=== PATIENT | female | born 1930 | race Caucasian/White ===

== ENCOUNTER 2016-09-21 15:50 | Observation (INO) | payer OTHER, MEDICARE ==
--- NOTE | 2016-09-21 16:14 | PDOC ---
History of Present Illness - General Chief Complaint: Nausea/Vomiting Stated Complaint: VOMITING Time Seen by Provider: 09/21/16 16:12 Past History - Past Medical History Allergies/Adverse Reactions: Allergies Allergy/AdvReac Type Severity Reaction Status Date / Time No Known Allergies Allergy Verified 09/21/16 15:57 Home Medications: Ambulatory Orders Aspirin [ASA -] 81 mg PO DAILY 11/27/12 Doxazosin Mesylate [Cardura Xl] 4 mg PO DAILY 11/27/12 Metoprolol Succinate 100 mg PO BID 11/27/12 Vitamin E 400 unit PO DAILY 11/27/12 Amlodipine/Valsartan [Exforge 10-160 mg Tablet] 1 each PO DAILY 05/31/13 Calcium 1,000 mg PO DAILY 05/31/13 Cholecalciferol (Vitamin D3) [Vitamin D-400] 400 unit PO DAILY 05/31/13 Cyanocobalamin [Vitamin B12 -] 1,000 mcg PO DAILY 05/31/13 Hydroxychloroquine Sulfate 200 mg PO DAILY 05/31/13 Levothyroxine [Synthroid -] 25 mcg PO DAILY 05/31/13 Multivitamin [Daily Multiple Vitamin] 1 each PO DAILY 05/31/13 Ibuprofen [Motrin -] 400 mg PO QID PRN #28 tablet 10/12/13 Cardiac Disorders: Yes (CHF) Diabetes: Yes HTN: Yes Hypercholesterolemia: Yes Thyroid Disease: Yes - Surgical History Abdominal Surgery: Yes (UMBILICAL HERNIA REPAIR) Appendectomy: Yes - Psycho/Social/Smoking Cessation Hx Anxiety: No Suicidal Ideation: No Smoking History: Never smoked Hx Alcohol Use: No Drug/Substance Use Hx: No Substance Use Type: None *Physical Exam - Vital Signs Last Vital Signs Temp Pulse Resp BP Pulse Ox 97.5 F L 71 18 159/76 99 09/21/16 15:54 09/21/16 15:54 09/21/16 15:54 09/21/16 15:54 09/21/16 15:54 ED Treatment Course - LABORATORY CBC & Chemistry Diagram: 09/21/16 16:46 09/21/16 16:46 Medical Decision Making - Medical Decision Making ddx: ACS, gastroenteritis, colitis, diberticulosis, hypogly 09/21/16 17:00 Patient feeling better following zofran 1 l bolus ns 09/21/16 18:02 ua wnl cbc wnl NA, BUN: hemoconcentrated should correct with fluids. 09/21/16 18:03 Trop(-), Positive CKMB Admit to tele 09/21/16 19:12 Dr. Hemphill spoke with PCP, Dr. Rodriguez and he instructed to admit to hospitalist 09/21/16 19:59 Admitted to tele-obs *DC/Admit/Observation/Transfer Diagnosis at time of Disposition: Elevation of cardiac enzymes, Epigastric pain - Discharge Dispostion Condition at time of disposition: Guarded Admit: Yes - Attestations Physician Attestion: 09/21/16 20:00 I, Dr. William Zamora, attest that this document has been prepared under my direction and personally reviewed by me in its entirety. I further attest, that it accurately reflects all work, treatment, procedures and medical decision -making performed by me.
[2016-09-21] MEDS ORDERED: ONDANSETRON 4 MG/2 ML VIAL ONE (16:21)
[2016-09-21 16:56] LABS: BASOPHIL 1.1 % (0-2.0); EOSINOPHIL 1.5 % (0-4.5); MCH 31.6 pg (25.7-33.7); MCHC 33.7 g/dl (32.0-36.0); MEAN CELL VOLUME 93.9 fl (80-96); MEAN PLT VOLUME 7.7 fl (7.5-11.1); NEUTROPHILS 68.7 % (42.8-82.8); PLATELET COUNT 305 K/MM3 (134-434); RDW 14.4 % (11.6-15.6); WHITE BLOOD COUNT 5.1 K/mm3 (4.0-10.0)
[2016-09-21] MEDS ORDERED: ONDANSETRON 4 MG/2 ML VIAL IVPUSH ONE (17:03)
[2016-09-21] MEDS ORDERED: SODIUM CHLORIDE 1,000 ML IV STA (17:05)
[2016-09-21 17:25] LABS: ALBUMIN 3.8 g/dl (3.4-5.0); ANION GAP 8 (8-16); BILIRUBIN,TOTAL 0.3 mg/dL (0.2-1.0); CALCIUM 8.7 mg/dL (8.5-10.1); CO2 24 mmol/L (21-32); CREATININE 0.8 mg/dL (0.55-1.02); GLUCOSE,RANDOM 117 mg/dL (74-106); SGOT/AST 31 U/L (15-37); SGPT/ALT 45 U/L (12-78); TOT PROT 6.9 g/dl (6.4-8.2)
[2016-09-21 17:26] LABS: ALK PHOS 123 U/L (45-117)
--- NOTE | 2016-09-21 17:45 | PDOC ---
Attending Attestation - Resident Resident Name: William Zamora - ED Attending Attestation I have performed the following: I have examined & evaluated the patient, The case was reviewed & discussed with the resident, I agree w/resident's findings & plan, Exceptions are as noted - HPI HPI: 09/21/16 17:44 Agree with the resident's HPI as documented in the electronic medical record. - Physicial Exam PE: 09/21/16 17:44 Agree with the resident's physical examination as documented in the electronic medical record. - Medical Decision Making 09/21/16 17:44 85-year-old female with history of hypertension, diabetes, CHF who presents the emergency department with 2 episodes of nausea, vomiting and diarrhea earlier this morning. Differential diagnosis includes but is not limited to: Gastroenteritis, colitis, diverticulitis, gallbladder disease, pancreatitis, atypical presentation of ACS, UTI, dehydration, electrolyte abnormality, toxic/ metabolic derangement. Plan: 1. Labs 2. EKG 3. Urine analysis 4. IV fluids for hydration 5. Antiemetics 6. Observe and reevaluate 09/21/16 18:55 Addendum: EKG shows NSR at 70 bpm with a RBBB--no prior EKG for comparison. The troponin 0.05 and the Ck and MB fraction are both elevated. Will recommend admission to tele observation for serial cardiac markers and cardiac stress test.
[2016-09-21 17:54] LABS: URINE APPEARANCE CLEAR; URINE BILIRUBIN NEGATIVE (NEGATIVE); URINE BLOOD NEGATIVE (NEGATIVE); URINE COLOR LTYELLOW; URINE GLUCOSE (UA) NEGATIVE (NEGATIVE); URINE KETONE NEGATIVE (NEGATIVE); URINE LEUK ESTERASE NEGATIVE (NEGATIVE); URINE NITRITE NEGATIVE (NEGATIVE); URINE UROBILINOGEN NEGATIVE mg/dL (0.2-1.0)
[2016-09-21 17:56] LABS: URINE PROTEIN 1+ (NEGATIVE)
[2016-09-21 17:57] LABS: URINE BACTERIA RARE /hpf (NONE SEEN); URINE MUCUS RARE; URINE RBC 1 /hpf (0-3); URINE WBC 5 /hpf (3-5)
[2016-09-21 18:11] LABS: TROPONIN I 0.05 ng/ml (0.00-0.05)
--- NOTE | 2016-09-21 20:31 | HP ---
Admitting History and Physical - Admission Chief Complaint: nausea, diarrhea, epigastric discomfort History of Present Illness: 85 y old white f w hx of htn, dm, celiac disease, hypothyroidism, chf, hlp, RA presents to the ER for epigastric discomfort, nausea, and soft stools x 2. She reports onset of symptoms earlier today shortly after taking Aricept pill. She reports some associated perspiration, and tingling in the lips. She states the pain in her epigastric area lasted 1 hour. She states that the pain is 6/10, sharp, non- radiating. She reports the pain dissipated on its own. She reports eating cereal and grits this am and having fish and vegetables last night for dinner. She denies body aches, fevers, bloody stools, chest pain, sob, heart palps, marion, vision changes, dizziness, leg swelling, dysuria syncope, orthopnea. She denies sick contacts. PMH/PSH- hernia repair, hysterectomy, cyst removal, hammer toe surgery, htn, dm , celiac disease, hypothyroidism, chf, hlp, Ra. Social- . Denies alcohol, tobacco Famhx- Unk PCP- Dr Renny Aponte neg except for HPI Physical Gen- in nad, alert Hent- at/nc, ellie, neck supple, trachea mid-line, no lymphadenopathy, ellie, no pharyngeal erythema/exudates Resp- no cough, no rales, lungs ctab, no ronchi, no cyanosis Cards- S1S2 Bennett, no JVD, ext pulses palpable, no leg edema, RRR, systolic 2/6 murmur over precordium Skin- no rash, skin dry, intact Psych- no agitation, cooperative Neuro- cn 2-12 grossly intact, speech clear, no facial droop Musk- normal arom bue/ble Gi- soft non- tender, no guarding, no rebound, no rigidity, BS nomroactive x 4 Prob list epigastric discomfort nausea htn dm hlp elevated cardiac enzymes imaging: cxr reviewed ekg reviewed a/p-85 y old white f w hx of htn, dm, celiac disease, hypothyroidism, chf, hlp, RA presents to the ER for epigastric discomfort, nausea, and soft stools placed in obs for evaluation of their emergent condition.. 1. Epigastric discomfort, nausea ? gastroenteritis, atypical ACS, gastritis, drug reaction Reports feeling nausea and epigastric discomfort after taking Aricept Given Zofran in Er Lipase nl CK elevated 1st trop neg No WHIT/STD changes Abdominal US pending Cycle trops Cardiac tele Hold Aricpet Prn Zofran Prn mylanta 2. HTN Cont home meds 3. HLP No home meds Low fat diet 4. RA Cont home meds 5. DM No home meds Monitor F/S FU A1c NCS 6. Hypothyroidism FU TSH Cont home meds DVT prophy scd, oob FEN Low NA, Low fat, diabetic diet Dispo- obs for ACS r/o History Source: Patient, Family Member Limitations to Obtaining History: No Limitations - Smoking History Smoking history: Never smoked - Alcohol/Substance Use Hx Alcohol Use: No Home Medications - Allergies Allergies/Adverse Reactions: Allergies Allergy/AdvReac Type Severity Reaction Status Date / Time No Known Allergies Allergy Verified 09/21/16 15:57 - Home Medications Home Medications: Ambulatory Orders Aspirin [ASA -] 81 mg PO DAILY 11/27/12 Doxazosin Mesylate [Cardura Xl] 4 mg PO DAILY 11/27/12 Metoprolol Succinate 100 mg PO BID 11/27/12 Vitamin E 400 unit PO DAILY 11/27/12 Amlodipine/Valsartan [Exforge 10-160 mg Tablet] 1 each PO DAILY 05/31/13 Calcium 1,000 mg PO DAILY 05/31/13 Cholecalciferol (Vitamin D3) [Vitamin D-400] 400 unit PO DAILY 05/31/13 Cyanocobalamin [Vitamin B12 -] 1,000 mcg PO DAILY 05/31/13 Hydroxychloroquine Sulfate 200 mg PO DAILY 05/31/13 Levothyroxine [Synthroid -] 25 mcg PO DAILY 05/31/13 Multivitamin [Daily Multiple Vitamin] 1 each PO DAILY 05/31/13 Ibuprofen [Motrin -] 400 mg PO QID PRN #28 tablet 10/12/13 Physical Examination Vital Signs: Vital Signs Temperature 97.7 F 09/21/16 19:39 Pulse Rate 77 09/21/16 19:39 Respiratory Rate 18 09/21/16 19:39 Blood Pressure 166/59 09/21/16 19:39 O2 Sat by Pulse Oximetry (%) 99 09/21/16 19:39 Labs: CBC, BMP 09/21/16 16:46 07/15/17 16:46 Visit type - Emergency Visit Emergency Visit: Yes ED Registration Date: 09/21/16 Care time: The patient presented to the Emergency Department on the above date and was hospitalized for further evaluation of their emergent condition. - New Patient This patient is new to me today: Yes Date on this admission: 09/22/16 - Critical Care Critical Care patient: No
[2016-09-21] MEDS ORDERED: ONDANSETRON 4 MG/2 ML VIAL IVPB PRN (20:40)
[2016-09-21] MEDS ORDERED: ACETAMINOPHEN 325 MG TABLET (FP) PO PRN (20:40)
[2016-09-21] MEDS ORDERED: MAG HYDROX/AL HYDROX/SIMETH 30 ML UNIT-DOSE CUP PO PRN (20:41)
[2016-09-22 01:46] VITALS: BMI 27.2
[2016-09-22] MEDS ORDERED: PNEUMOC 13-VAL CONJ-DIP CRM/PF 0.5 ML DISP.SYRIN IM ONE (01:46)
[2016-09-22 06:17] LABS: BASOPHIL 0.8 % (0-2.0); EOSINOPHIL 1.1 % (0-4.5); MCH 31.9 pg (25.7-33.7); MEAN CELL VOLUME 93.8 fl (80-96); MEAN PLT VOLUME 7.5 fl (7.5-11.1); NEUTROPHILS 63.7 % (42.8-82.8); PLATELET COUNT 308 K/MM3 (134-434); RDW 14.6 % (11.6-15.6); WHITE BLOOD COUNT 5.9 K/mm3 (4.0-10.0)
[2016-09-22] MEDS: LEVOTHYROXINE NA 25 MCG TABLET (FP) PO SCH (06:30)
[2016-09-22 06:43] LABS: ALBUMIN 3.2 g/dl (3.4-5.0); ANION GAP 9 (8-16); CALCIUM 8.4 mg/dL (8.5-10.1); CO2 25 mmol/L (21-32); GLUCOSE,RANDOM 94 mg/dL (74-106); SGOT/AST 29 U/L (15-37); SGPT/ALT 38 U/L (12-78)
[2016-09-22 06:46] LABS: ALK PHOS 101 U/L (45-117); BILIRUBIN,TOTAL 0.5 mg/dL (0.2-1.0); CREATININE 0.7 mg/dL (0.55-1.02); TOT PROT 5.8 g/dl (6.4-8.2)
[2016-09-22 08:32] LABS: TROPONIN I 0.07 ng/ml (0.00-0.05)
[2016-09-22] MEDS ORDERED: PT OWN MED DRAWER 7, Y5N ONE ×2 (09:10→12:53)
[2016-09-22] MEDS: ASPIRIN 81 MG CHEWABLE TABLETS PO SCH (09:24)
[2016-09-22] MEDS: VALSARTAN 160 MG TABLET (UD) PO SCH (09:24)
[2016-09-22] MEDS: amLODIPine BESYLATE 10 MG TABLET (FP) PO SCH (09:24)
[2016-09-22] MEDS: METOPROLOL SUCCINATE 50 MG TAB.SR.24H (FP) PO SCH (09:24)
[2016-09-22] MEDS: MULTIVITAMINS (DAILY MVI) TABLET (FP) PO SCH (09:24)
--- NOTE | 2016-09-22 11:49 | PN ---
Progress Note (short form) - Note Progress Note: Chief Complaint: Events noted, notes reviewed, abdominal discomfort and diarrhea , denies any chest pain or dyspnea History of Present Illness: Seen and examined in the ICU. Events noted, notes reviewed, abdominal discomfort and diarrhea, denies any chest pain or dyspnea Medications: Current Medications Acetaminophen (Tylenol -) 650 mg PO Q4H PRN PRN Reason: FEVER OR PAIN Al Hydroxide/Mg Hydroxide (Mylanta Oral Suspension -) 30 ml PO Q6H PRN PRN Reason: DYSPEPSIA Amlodipine Besylate (Norvasc -) 10 mg PO DAILY [facility] Last Admin: 09/22/16 09:24 Dose: 10 mg Aspirin (Asa -) 81 mg PO DAILY [facility] Last Admin: 09/22/16 09:24 Dose: 81 mg Calcium Carbonate (Os-Satish 500mg -) 1,000 mg PO BID [facility] Cholecalciferol (Vitamin D3 -) 400 unit PO DAILY [facility] Cyanocobalamin (Vitamin B12 -) 1,000 mcg PO DAILY [facility] Doxazosin Mesylate (Cardura -) 4 mg PO DAILY [facility] Hydroxychloroquine Sulfate (Plaquenil -) 200 mg PO DAILY [facility] Levothyroxine Sodium (Synthroid -) 25 mcg PO DAILY@0700 [facility] Last Admin: 09/22/16 06:30 Dose: 25 mcg Metoprolol Succinate (Toprol Xl -) 50 mg PO DAILY [facility] Last Admin: 09/22/16 09:24 Dose: 50 mg Multivitamins/Minerals/Vitamin C (Tab-A-Vit -) 1 tab PO DAILY [facility] Last Admin: 09/22/16 09:24 Dose: 1 tab Ondansetron HCl (Zofran Injection) 4 mg IVPB Q4H PRN PRN Reason: NAUSEA AND/OR VOMITING Valsartan (Diovan -) 160 mg PO DAILY [facility] Last Admin: 09/22/16 09:24 Dose: 160 mg Vitamin E (Vitamin E -) 400 unit PO DAILY [facility] Review of Systems Cardiovascular: As noted above Respiratory: denies: Cough or Sputum Production Gastrointestinal: As noted above Musculoskeletal: No Symptoms Reported Endocrine: Hypothyroidism Vital Signs: Last Vital Signs Temp Pulse Resp BP Pulse Ox 98.4 F 78 18 161/68 96 09/22/16 06:03 09/22/16 08:00 09/22/16 08:00 09/22/16 08:00 09/22/16 09:00 Constitutional: No Distress, Calm, Thin Neck: Supple Negative JVD No bruit Respiratory: Clear to A&P Bilaterally Cardiovascular: S1 S2 Regular Rate and Rhythm Grade 1-2/6 SM Gastrointestinal: Soft Benign Normal Bowel Sounds Ext: No Edema Labs: CBC, BMP 09/22/16 05:20 09/22/16 05:20 Troponin, BNP 09/21/16 09/21/16 09/21/16 16:46 17:45 22:39 Troponin I 0.05 Cancelled 0.05 09/22/16 09/22/16 09/22/16 05:20 05:20 05:20 Troponin I 0.07 H Cancelled Cancelled Assessment/Plan ASSESSMENT: 1. CAD with evidence of demand ischemic injury, no acute EKG changes 2. 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 Abdominal discomfort and diarrhea, etiology to be determined 4. HTN 5. NIDDM 6. Hypercholesterolemia 7. Hypothyroidism 8. History of rheumatoid arthritis 9. History of Celiac disease PLAN: 1. Continue Norvasc 2. Continue Cardura 3. Continue Toprol XL 4. Continue Diovan 5. Continue ASA 6. Add statins, Lipitor 7. Echocardiography to evaluate LV function, if no wall motion abnormality noted and Troponin I trending down can be D/C home for outpatient pharmacologic MPI study Vandana Omer M.D.
[2016-09-22] MEDS: HYDROXYCHLOROQUINE SO4 200 MG TABLET (FP) PO SCH (12:55)
[2016-09-22] MEDS: VITAMIN E 400 INTERNATIONAL-UNITS CAPSULE (FP) PO SCH (12:55)
[2016-09-22] MEDS: CHOLECALCIFEROL (VITAMIN D3) 400 UNIT TABLET (FP) PO SCH (12:55)
[2016-09-22] MEDS: CYANOCOBALAMIN 1,000 MCG TABLET (FP) PO SCH (12:55)
--- NOTE | 2016-09-22 13:35 | EKG ---
Test Reason : Blood Pressure : / mmHG Vent. Rate : 070 BPM Atrial Rate : 070 BPM P-R Int : 154 ms QRS Dur : 146 ms QT Int : 434 ms P-R-T Axes : 043 068 028 degrees QTc Int : 468 ms NORMAL SINUS RHYTHM RIGHT BUNDLE BRANCH BLOCK POSSIBLE INFERIOR INFARCT , AGE UNDETERMINED ABNORMAL ECG WHEN COMPARED WITH ECG OF 12-OCT-2013 15:19, NO SIGNIFICANT CHANGE WAS FOUND Confirmed by CHRISTIANE CALL, JIMMY ([id number]) on 09/22/2016 1:35:44 PM Referred By: Confirmed By:JIMMY GRANDE MD
[2016-09-22] MEDS: DOXAZOSIN MESYLATE 4 MG TABLET PO SCH (15:28)
[2016-09-22] MEDS: CALCIUM (OYSTER SHELL) 500 MG TABLET (FP) PO SCH ×2 (15:29→21:45)
--- NOTE | 2016-09-22 17:49 | PN ---
Physical Exam: SUBJECTIVE: Patient seen and examined at the bedside. She denies any discomfort and/or chest pain. States Aricept is a new medication and she became symptomatic (having abdominal pain, nausea and lip tingling) after taking Aricept. She states her symptoms have now resolved. OBJECTIVE: Troponins peaked at 0.07 Vital Signs Period Temp Pulse Resp BP Sys/Elaine Pulse Ox Last 24 Hr 97.7 F-98.8 F 72-91 16-24 135-177/51-92 96-98 GENERAL: The patient is awake, alert, and fully oriented, in no acute distress. HEAD: Normal with no signs of trauma, no edema, no lip swelling, tolerating room air EYES: PERRL, extraocular movements intact, sclera anicteric, conjunctiva clear. No ptosis. ENT: Ears normal, nares patent, oropharynx clear without exudates, moist mucous membranes. NECK: Trachea midline, full range of motion, supple. LUNGS: Breath sounds equal, clear to auscultation bilaterally, no wheezes, no crackles, no accessory muscle use. HEART: Regular rate and rhythm ABDOMEN: soft, non distended, + bowel sounds EXTREMITIES: no edema. NEUROLOGICAL: Normal speech, gait not observed. PSYCH: Normal mood, normal affect. SKIN: Warm, dry, normal turgor, no rashes or lesions noted Laboratory Results - last 24 hr 09/21/16 09/21/16 09/21/16 22:39 22:39 22:39 WBC RBC Hgb Hct MCV MCH MCHC RDW Plt Count MPV Neutrophils % Lymphocytes % Monocytes % Eosinophils % Basophils % Sodium Potassium Chloride Carbon Dioxide Anion Gap BUN Creatinine Creat Clearance w eGFR POC Glucometer Random Glucose Hemoglobin A1c % 6.6 H Calcium Total Bilirubin AST ALT Alkaline Phosphatase Creatine Kinase CK-MB (CK-2) Troponin I 0.05 Total Protein Albumin TSH 1.08 D 09/22/16 09/22/16 09/22/16 04:56 05:20 05:20 WBC 5.9 RBC 3.42 L Hgb 10.9 Hct 32.1 L MCV 93.8 MCH 31.9 MCHC 34.0 RDW 14.6 Plt Count 308 MPV 7.5 Neutrophils % 63.7 Lymphocytes % 21.8 Monocytes % 12.6 H Eosinophils % 1.1 Basophils % 0.8 Sodium 140 Potassium 3.9 Chloride 106 Carbon Dioxide 25 Anion Gap 9 BUN 21 H D Creatinine 0.7 Creat Clearance w eGFR > 60 POC Glucometer [id number] Random Glucose 94 Hemoglobin A1c % Calcium 8.4 L Total Bilirubin 0.5 D AST 29 ALT 38 Alkaline Phosphatase 101 Creatine Kinase 256 H D CK-MB (CK-2) 5.705 H Troponin I 0.07 H Total Protein 5.8 L Albumin 3.2 L TSH 09/22/16 09/22/16 09/22/16 05:20 05:20 12:40 WBC RBC Hgb Hct MCV MCH MCHC RDW Plt Count MPV Neutrophils % Lymphocytes % Monocytes % Eosinophils % Basophils % Sodium Potassium Chloride Carbon Dioxide Anion Gap BUN Creatinine Creat Clearance w eGFR POC Glucometer Random Glucose Hemoglobin A1c % Calcium Total Bilirubin AST ALT Alkaline Phosphatase Creatine Kinase Cancelled CK-MB (CK-2) Troponin I Cancelled Cancelled 0.07 H Total Protein Albumin TSH Active Medications Generic Name Dose Route Start Last Admin Trade Name Freq PRN Reason Stop Dose Admin Acetaminophen 650 mg 09/21/16 20:40 Tylenol - PO Q4H PRN FEVER OR PAIN Al Hydroxide/Mg Hydroxide 30 ml 09/21/16 20:41 Mylanta Oral Suspension - PO Q6H PRN DYSPEPSIA Amlodipine Besylate 10 mg 09/22/16 10:00 09/22/16 09:24 Norvasc - PO 10 mg DAILY [facility] Administration Aspirin 81 mg 09/22/16 10:00 09/22/16 09:24 Asa - PO 81 mg DAILY [facility] Administration Atorvastatin Calcium 10 mg 09/22/16 22:00 Lipitor - PO HS [facility] Calcium Carbonate 1,000 mg 09/22/16 10:00 09/22/16 15:29 Os-Satish 500mg - PO 1,000 mg BID [facility] Administration Cholecalciferol 400 unit 09/22/16 10:00 09/22/16 12:55 Vitamin D3 - PO 400 unit DAILY [facility] Administration Cyanocobalamin 1,000 mcg 09/22/16 10:00 09/22/16 12:55 Vitamin B12 - PO 1,000 mcg DAILY [facility] Administration Doxazosin Mesylate 4 mg 09/22/16 10:00 09/22/16 15:28 Cardura - PO 4 mg DAILY [facility] Administration Hydroxychloroquine Sulfate 200 mg 09/22/16 10:00 09/22/16 12:55 Plaquenil - PO 200 mg DAILY [facility] Administration Levothyroxine Sodium 25 mcg 09/22/16 07:00 09/22/16 06:30 Synthroid - PO 25 mcg DAILY@0700 [facility] Administration Metoprolol Succinate 50 mg 09/22/16 10:00 09/22/16 09:24 Toprol Xl - PO 50 mg DAILY [facility] Administration Multivitamins/Minerals/Vitamin C 1 tab 09/22/16 10:00 09/22/16 09:24 Tab-A-Vit - PO 1 tab DAILY [facility] Administration Ondansetron HCl 4 mg 09/21/16 20:40 Zofran Injection IVPB Q4H PRN NAUSEA AND/OR VOMITING Valsartan 160 mg 09/22/16 10:00 09/22/16 09:24 Diovan - PO 160 mg DAILY [facility] Administration Vitamin E 400 unit 09/22/16 10:00 09/22/16 12:55 Vitamin E - PO 400 unit DAILY [facility] Administration ASSESSMENT/PLAN: Patient is an 85 year old female with a significant past medical history of hypertension, diabetes mellitus, celiac disease, hypothyroidism and CHF. She presented to the ER on 09/21/2016 with symptoms of epigastric discomfort, nausea , and soft stools. She reports onset of symptoms started after taking her first dose of Aricept (states she has never taken this medication before). She reports some associated perspiration, and tingling in the lips with epigastric discomfort. She denies body aches, fevers, bloody stools, chest pain, sob, heart palps, vision changes, dizziness, leg swelling, dysuria or syncope. She denies sick contacts. Cardiology: Rule out ACS Assessment/Plan: Elderly patient with risk factors She denies chest pain or shortness of breath, denies further epigastric discomfort Troponins peaked at 0.07, will add trop in a.m. to document peak Monitor on tele EKG: NSR with RGG and possible inf. infarct Echo for a.m. Cardiology following Hypertension - chronic Assessment/Plan: Continue cardiac home meds Monitor BP GI: Abdominal pain/Epigastric pain Assessment/Plan: Now resolved, tolerating diet Endocrine: Diabetes Mellitus Assessment/Plan: Monitor BGMs Novolog ac/hs Disposition: If cardiac workup negative, can be d/c home as per fisher quahog. Continue to hold aricept. Full code Visit type - Emergency Visit Emergency Visit: Yes ED Registration Date: 09/21/16 Care time: The patient presented to the Emergency Department on the above date and was hospitalized for further evaluation of their emergent condition. - New Patient This patient is new to me today: Yes Date on this admission: 09/22/16 - Critical Care Critical Care patient: Yes Total Critical Care Time (in minutes): 45 Critical Care Statement: The care of this patient involved high complexity decision making to prevent further life threatening deterioration of the patient 's condition and/or to evalute & treat vital organ system(s) failure or risk of failure. - Discharge Referral Referred to [facility] No
[2016-09-22] MEDS ORDERED: ATORVASTATIN CA 10 MG TABLET (FP) PO SCH (22:00)
[2016-09-23 06:28] LABS: BASOPHIL 0.9 % (0-2.0); EOSINOPHIL 1.6 % (0-4.5); MCHC 34.2 g/dl (32.0-36.0); MEAN CELL VOLUME 93.6 fl (80-96); MEAN PLT VOLUME 7.4 fl (7.5-11.1); NEUTROPHILS 70.9 % (42.8-82.8); PLATELET COUNT 310 K/MM3 (134-434); RDW 14.7 % (11.6-15.6); WHITE BLOOD COUNT 5.9 K/mm3 (4.0-10.0)
[2016-09-23] MEDS: LEVOTHYROXINE NA 25 MCG TABLET (FP) PO SCH (06:39)
[2016-09-23 06:53] LABS: ALBUMIN 3.3 g/dl (3.4-5.0); ANION GAP 5 (8-16); BILIRUBIN,TOTAL 0.4 mg/dL (0.2-1.0); CALCIUM 8.7 mg/dL (8.5-10.1); CO2 29 mmol/L (21-32); CREATININE 0.8 mg/dL (0.55-1.02); GLUCOSE,RANDOM 174 mg/dL (74-106); SGOT/AST 26 U/L (15-37); SGPT/ALT 37 U/L (12-78); TOT PROT 6.1 g/dl (6.4-8.2)
[2016-09-23 06:55] LABS: ALK PHOS 105 U/L (45-117); TROPONIN I 0.06 ng/ml (0.00-0.05)
--- NOTE | 2016-09-23 08:54 | PN ---
Physical Exam: SUBJECTIVE: 85 year old female with pmh HTN, DM, hypothyroid, CHF, celiac dz presented to the hospital w/ epigastric discomfort, nausea, and soft stools. She was just started on Donezepil 5mg 09/20, took one tablet and afterwards began having these sx. She was found to have elevated trops with 0.07 peak. Today, the patient states her symptoms have completely resolved, with no lingering abdominal discomfort, nausea, diarrhea, chest pain. OBJECTIVE: Vital Signs Period Temp Pulse Resp BP Sys/Elaine Pulse Ox Last 24 Hr 98 F-98.8 F 72-88 13-24 118-176/52-85 96-96 GENERAL: The patient is awake, alert, and fully oriented, in no acute distress. HEAD: Normal with no signs of trauma. EYES: PERRL, extraocular movements intact, sclera anicteric, conjunctiva clear. No ptosis. ENT: Ears normal, nares patent, oropharynx clear without exudates, moist mucous membranes. NECK: Trachea midline, full range of motion, supple. LUNGS: Breath sounds equal, clear to auscultation bilaterally, no wheezes, no crackles, no accessory muscle use. HEART: Regular rate and rhythm, S1, S2 without murmur, rub or gallop. ABDOMEN: Soft, nontender, nondistended, normoactive bowel sounds, no guarding, no rebound, no hepatosplenomegaly, no masses. EXTREMITIES: 2+ pulses, warm, well-perfused, no edema. NEUROLOGICAL: Cranial nerves II through XII grossly intact. Normal speech, gait not observed. PSYCH: Normal mood, normal affect. SKIN: Warm, dry, normal turgor, no rashes or lesions noted CBC, BMP 09/23/16 05:15 09/23/16 05:15 Troponin, BNP 09/22/16 09/22/16 09/23/16 05:20 12:40 05:15 Troponin I 0.07 H 0.07 H 0.06 H Active Medications Generic Name Dose Route Start Last Admin Trade Name Freq PRN Reason Stop Dose Admin Acetaminophen 650 mg 09/21/16 20:40 Tylenol - PO Q4H PRN FEVER OR PAIN Al Hydroxide/Mg Hydroxide 30 ml 09/21/16 20:41 Mylanta Oral Suspension - PO Q6H PRN DYSPEPSIA Amlodipine Besylate 10 mg 09/22/16 10:00 09/22/16 09:24 Norvasc - PO 10 mg DAILY [facility] Administration Aspirin 81 mg 09/22/16 10:00 09/22/16 09:24 Asa - PO 81 mg DAILY [facility] Administration Atorvastatin Calcium 10 mg 09/22/16 22:00 09/22/16 21:18 Lipitor - PO 10 mg HS [facility] Administration Calcium Carbonate 1,000 mg 09/22/16 10:00 09/22/16 21:45 Os-Satish 500mg - PO 1,000 mg BID [facility] Administration Cholecalciferol 400 unit 09/22/16 10:00 09/22/16 12:55 Vitamin D3 - PO 400 unit DAILY [facility] Administration Cyanocobalamin 1,000 mcg 09/22/16 10:00 09/22/16 12:55 Vitamin B12 - PO 1,000 mcg DAILY [facility] Administration Doxazosin Mesylate 4 mg 09/22/16 10:00 09/22/16 15:28 Cardura - PO 4 mg DAILY [facility] Administration Hydroxychloroquine Sulfate 200 mg 09/22/16 10:00 09/22/16 12:55 Plaquenil - PO 200 mg DAILY [facility] Administration Levothyroxine Sodium 25 mcg 09/22/16 07:00 09/23/16 06:39 Synthroid - PO 25 mcg DAILY@0700 [facility] Administration Metoprolol Succinate 50 mg 09/22/16 10:00 09/22/16 09:24 Toprol Xl - PO 50 mg DAILY [facility] Administration Multivitamins/Minerals/Vitamin C 1 tab 09/22/16 10:00 09/22/16 09:24 Tab-A-Vit - PO 1 tab DAILY [facility] Administration Ondansetron HCl 4 mg 09/21/16 20:40 Zofran Injection IVPB Q4H PRN NAUSEA AND/OR VOMITING Valsartan 160 mg 09/22/16 10:00 09/22/16 09:24 Diovan - PO 160 mg DAILY [facility] Administration Vitamin E 400 unit 09/22/16 10:00 09/22/16 12:55 Vitamin E - PO 400 unit DAILY [facility] Administration ASSESSMENT/PLAN:
[2016-09-23] MEDS: ASPIRIN 81 MG CHEWABLE TABLETS PO SCH (09:18)
[2016-09-23] MEDS: VALSARTAN 160 MG TABLET (UD) PO SCH (09:18)
[2016-09-23] MEDS: METOPROLOL SUCCINATE 50 MG TAB.SR.24H (FP) PO SCH (09:18)
[2016-09-23] MEDS: amLODIPine BESYLATE 10 MG TABLET (FP) PO SCH (09:19)
[2016-09-23] MEDS: MULTIVITAMINS (DAILY MVI) TABLET (FP) PO SCH (09:20)
--- NOTE | 2016-09-23 09:25 | PN ---
Progress Note, Physician History of Present Illness: Epigastric discomfort, nausea and loose stools resolved, tolerated breakfast, denies chest pain or dyspnea. - Current Medication List Current Medications: Active Medications Acetaminophen (Tylenol -) 650 mg PO Q4H PRN PRN Reason: FEVER OR PAIN Al Hydroxide/Mg Hydroxide (Mylanta Oral Suspension -) 30 ml PO Q6H PRN PRN Reason: DYSPEPSIA Amlodipine Besylate (Norvasc -) 10 mg PO DAILY [facility] Last Admin: 09/23/16 09:19 Dose: 10 mg Aspirin (Asa -) 81 mg PO DAILY [facility] Last Admin: 09/23/16 09:18 Dose: 81 mg Atorvastatin Calcium (Lipitor -) 10 mg PO HS [facility] Last Admin: 09/22/16 21:18 Dose: 10 mg Calcium Carbonate (Os-Satish 500mg -) 1,000 mg PO BID [facility] Last Admin: 09/22/16 21:45 Dose: 1,000 mg Cholecalciferol (Vitamin D3 -) 400 unit PO DAILY [facility] Last Admin: 09/22/16 12:55 Dose: 400 unit Cyanocobalamin (Vitamin B12 -) 1,000 mcg PO DAILY [facility] Last Admin: 09/22/16 12:55 Dose: 1,000 mcg Doxazosin Mesylate (Cardura -) 4 mg PO DAILY [facility] Last Admin: 09/22/16 15:28 Dose: 4 mg Hydroxychloroquine Sulfate (Plaquenil -) 200 mg PO DAILY [facility] Last Admin: 09/22/16 12:55 Dose: 200 mg Levothyroxine Sodium (Synthroid -) 25 mcg PO DAILY@0700 [facility] Last Admin: 09/23/16 06:39 Dose: 25 mcg Metoprolol Succinate (Toprol Xl -) 50 mg PO DAILY [facility] Last Admin: 09/23/16 09:18 Dose: 50 mg Multivitamins/Minerals/Vitamin C (Tab-A-Vit -) 1 tab PO DAILY [facility] Last Admin: 09/23/16 09:20 Dose: 1 tab Ondansetron HCl (Zofran Injection) 4 mg IVPB Q4H PRN PRN Reason: NAUSEA AND/OR VOMITING Valsartan (Diovan -) 160 mg PO DAILY [facility] Last Admin: 09/23/16 09:18 Dose: 160 mg Vitamin E (Vitamin E -) 400 unit PO DAILY [facility] Last Admin: 09/22/16 12:55 Dose: 400 unit - Objective Vital Signs: Vital Signs Temperature 98 F 09/23/16 06:00 Pulse Rate 80 09/23/16 08:00 Respiratory Rate 18 09/23/16 09:00 Blood Pressure 155/75 09/23/16 08:00 O2 Sat by Pulse Oximetry (%) 96 09/23/16 09:00 Constitutional: Yes: No Distress, Calm, Thin Neck: Yes: Supple Cardiovascular: Yes: Regular Rate and Rhythm Respiratory: Yes: Regular, CTA Bilaterally Gastrointestinal: Yes: Normal Bowel Sounds, Soft Edema: No Labs: CBC, BMP 09/23/16 05:15 09/23/16 05:15 - ....Imaging EKG: Report Reviewed (Tele: SR with PAC) Problem List - Problems (1) Demand ischemia Code(s): I24.8 - OTHER FORMS OF ACUTE ISCHEMIC HEART DISEASE (2) Diastolic dysfunction without heart failure Code(s): I51.9 - HEART DISEASE, UNSPECIFIED (3) Hypertensive cardiomyopathy Code(s): I11.9 - HYPERTENSIVE HEART DISEASE WITHOUT HEART FAILURE I43 - CARDIOMYOPATHY IN DISEASES CLASSIFIED ELSEWHERE Qualifiers: Heart failure presence: without heart failure Qualified Code(s): I11.9 - Hypertensive heart disease without heart failure; I43 - Cardiomyopathy in diseases classified elsewhere (4) Hyperlipidemia associated with type 2 diabetes mellitus Code(s): E11.69 - TYPE 2 DIABETES MELLITUS WITH OTHER SPECIFIED COMPLICATION E78.5 - HYPERLIPIDEMIA, UNSPECIFIED (5) Type 2 diabetes mellitus Code(s): E11.9 - TYPE 2 DIABETES MELLITUS WITHOUT COMPLICATIONS Qualifiers: Diabetes mellitus complication status: without complication Diabetes mellitus senior care insulin use: without senior care use Qualified Code(s): E11.9 - Type 2 diabetes mellitus without complications (6) Hypothyroidism Code(s): E03.9 - HYPOTHYROIDISM, UNSPECIFIED Qualifiers: Hypothyroidism type: unspecified Qualified Code(s): E03.9 - Hypothyroidism, unspecified (7) Rheumatoid arthritis Code(s): M06.9 - RHEUMATOID ARTHRITIS, UNSPECIFIED Qualifiers: Rheumatoid arthritis location: unspecified site (8) Celiac disease/sprue Code(s): K90.0 - CELIAC DISEASE Assessment/Plan 1. CAD post demand ischemic injury, without acute EKG changes 2. 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 Abdominal discomfort and diarrhea, resolved 4. HTN 5. NIDDM 6. Hypercholesterolemia 7. Hypothyroidism 8. History of rheumatoid arthritis 9. History of Celiac disease PLAN: 1. Continue Norvasc 10 qd 2. Continue Cardura 4 qd 3. Continue Toprol XL 50 qd 4. Continue Diovan 160 qd 5. Continue ASA 81 qd 6. Continue Lipitor 10 qhs 7. F/u echocardiography to evaluate LV function, if no wall motion abnormality noted and Troponin I are trending down can be D/C home for outpatient pharmacologic MPI study
[2016-09-23] MEDS: DOXAZOSIN MESYLATE 4 MG TABLET PO SCH (11:27)
[2016-09-23] MEDS: VITAMIN E 400 INTERNATIONAL-UNITS CAPSULE (FP) PO SCH (11:27)
[2016-09-23] MEDS: CHOLECALCIFEROL (VITAMIN D3) 400 UNIT TABLET (FP) PO SCH (11:28)
[2016-09-23] MEDS: CALCIUM (OYSTER SHELL) 500 MG TABLET (FP) PO SCH (11:29)
[2016-09-23] MEDS: HYDROXYCHLOROQUINE SO4 200 MG TABLET (FP) PO SCH (11:30)
[2016-09-23] MEDS: CYANOCOBALAMIN 1,000 MCG TABLET (FP) PO SCH (11:31)
[2016-09-23 14:33] VITALS: BP 139/59; PULSE 74; TEMP 97.7
--- NOTE | 2016-09-23 15:51 | DS ---
Physical Examination Vital Signs: Vital Signs Temperature 97.7 F 09/23/16 14:00 Pulse Rate 74 09/23/16 14:00 Respiratory Rate 18 09/23/16 14:00 Blood Pressure 139/59 09/23/16 14:00 O2 Sat by Pulse Oximetry (%) 96 09/23/16 09:00 Labs: CBC, BMP 09/23/16 05:15 09/23/16 05:15 Discharge Summary Reason For Visit: CARDIAC ENZYMES ELEVATED Current Active Problems Cardiac enzymes elevated (Acute) Celiac disease/sprue (Acute) Demand ischemia (Acute) Diastolic dysfunction without heart failure (Acute) Epigastric pain (Acute) Hyperlipidemia associated with type 2 diabetes mellitus (Acute) Hypertensive cardiomyopathy (Acute) Hypothyroidism (Acute) Rheumatoid arthritis (Acute) Type 2 diabetes mellitus (Acute) Condition: Improved - Instructions Diet, Activity, Other Instructions: Please return to the ED with new, persistent, or worsening symptoms. Please follow-up with providers as indicated Referrals: Tono Hampton MD [Primary Care Provider] - 1 Week Karlos Owens MD [Staff Physician] - (Please follow-up with cardiology within 2 -3 days) Disposition: HOME - Home Medications Comprehensive Discharge Medication List: Ambulatory Orders Aspirin [ASA -] 81 mg PO DAILY 11/27/12 Doxazosin Mesylate [Cardura Xl] 4 mg PO DAILY 11/27/12 Vitamin E 400 unit PO DAILY 11/27/12 Amlodipine/Valsartan [Exforge 10-160 mg Tablet] 1 each PO DAILY 05/31/13 Calcium 1,000 mg PO DAILY 05/31/13 Cholecalciferol (Vitamin D3) [Vitamin D-400] 400 unit PO DAILY 05/31/13 Cyanocobalamin [Vitamin B12 -] 1,000 mcg PO DAILY 05/31/13 Hydroxychloroquine Sulfate 200 mg PO DAILY 05/31/13 Levothyroxine [Synthroid -] 25 mcg PO DAILY 05/31/13 Multivitamin [Daily Multiple Vitamin] 1 each PO DAILY 05/31/13 Ibuprofen [Motrin -] 400 mg PO QID PRN #28 tablet 10/12/13 Atorvastatin Ca [Lipitor] 10 mg PO HS #30 tablet 09/23/16 Metoprolol Succinate [Toprol XL -] 50 mg PO DAILY #30 tab 09/23/16 - Discharge Referral Referred to [facility] No
--- NOTE | 2016-09-24 10:08 | CONS ---
DATE OF CONSULTATION: 09/22/2016 REQUESTING PHYSICIAN: Hospitalist. CHIEF COMPLAINT: Abdominal discomfort, diarrhea, elevated troponin-I, cardiovascular evaluation. HISTORY OF PRESENT ILLNESS: An 85-year-old female of [place] descent with known history of coronary artery disease, angina pectoris, diastolic left ventricular dysfunction with chronic class 0 to 1 [place] [employer] classification left ventricular failure, hypertensive cardiovascular disease, diabetes mellitus, hypercholesterolemia, hypothyroidism, rheumatoid arthritis, celiac disease, who presented to [facility] with epigastric discomfort with associated diarrhea, and upon evaluation, patient was noted to have elevated troponin-I suggestive of acute coronary syndrome. Patient currently is sitting in a chair. She denies any chest discomfort. Patient did not report any dyspnea. Patient denied any orthopnea, paroxysmal nocturnal dyspnea, or peripheral edema. Patient denied any palpitations, dizziness, lightheadedness, or syncope. Patient denied any fatigue or tiredness. Patient stated that recently she was initiated on therapy for management of early-onset dementia. Therapy was administered yesterday, and subsequently, the above-noted symptoms developed. PAST MEDICAL HISTORY: Coronary artery disease, angina pectoris, diastolic left ventricular dysfunction with chronic class 0 to 1 [place] [employer] classification left ventricular failure, hypertensive cardiovascular disease, diabetes mellitus, hypercholesterolemia, hypothyroidism, history of rheumatoid arthritis, and history of celiac disease. SOCIAL HISTORY: Nonsmoker. Denies alcohol intake. FAMILY HISTORY: No history of coronary artery disease. ALLERGIES: None reported. MEDICAL THERAPY: Currently includes acetaminophen 650 mg every 4 hours as needed, Mylanta 30 mL every 6 hours as needed, Norvasc 10 mg once a day, Ecotrin 81 mg once a day, Os-Satish 500-mg tablet 1000 mg twice a day, vitamin D 400 international units once a day, Cardura 4 mg once a day, Plaquenil 200 mg once a day, Synthroid 25 mcg once a day, Toprol-XL 50 mg once a day, multivitamin 1 tablet once a day, Zofran 4 mg every 4 hours as needed, Diovan 160 mg once a day, vitamin E 400 international units once a day. REVIEW OF SYSTEMS: Head and Neck: Denies headache, photophobia, blurring of vision. Respiratory: No cough or sputum production. Cardiovascular: As noted above. Gastrointestinal: As noted above. Genitourinary: No symptoms reported. Musculoskeletal: History of rheumatoid arthritis. PHYSICAL EXAMINATION: Vital Signs: Blood pressure is 161/68 mmHg. Pulse rate is 78 beats per minute. Head and Neck: Pupils equal, reactive to light and accommodation. Extraocular movements are intact. Anicteric sclerae. Negative JVD. No bruit appreciated. Chest: Clear to auscultation and percussion. Cardiovascular: S1, S2 regular. Grade 1-2/6 systolic apical murmur. No clicks or gallops. Abdomen: Soft, benign. Normoactive bowel sounds. Extremities: Negative edema. Intact distal pulses. No calf tenderness. Electrocardiogram revealed sinus rhythm with complete right bundle branch block. CBC revealed white cell count 5.9, hemoglobin 10.9, platelet count 308. Basic metabolic profile revealed sodium 140, potassium 3.9, BUN of 21, creatinine 0.7, glucose 94. Troponin-I 0.05. Repeat 0.07. ASSESSMENT: 1. Coronary artery disease with evidence of demand ischemic injury. No acute electrocardiographic changes. 2. History of diastolic left ventricular dysfunction with chronic class 0-1 [place] [employer] classification left ventricular failure, compensated. 3. Abdominal discomfort and diarrhea; etiology is to be determined. 4. Hypertensive cardiovascular disease. 5. Cdm-xakmvsb-sbootynua diabetes mellitus. 6. Hypercholesterolemia. 7. Hypothyroidism. 8. History of rheumatoid arthritis. 9. History of celiac disease. RECOMMENDATION: 1. Continuation of Norvasc therapy. 2. Continuation of Diovan therapy. 3. Continuation of Cardura therapy. 4. Continuation of Toprol-XL therapy. 5. Continuation of aspirin therapy. 6. Addition of statin therapy in the form of Lipitor. 7. Echocardiography for evaluation of left ventricular systolic function and if no wall motion abnormality noted and troponin-I trending down, patient can be discharged home for outpatient pharmacologic myocardial perfusion imaging study. Thank you for the kind referral. OG ARAMBULA M.D. [id number] MTDD
== END 2016-09-23 17:52 | disposition home or self-care (01) ==
LOC: JER 15:50 → JERBED 20:00 → INTOOBSV 21:16 → UNDOADMOB 21:16 → JERBED 21:16 → JICU 09-22 02:44 → JERBED 09-22 02:44 → JICU 09-22 02:44 → J2W 09-23 10:56 → JICU 09-23 10:56 → J2W 09-23 10:56
PROVIDERS: ADMIT Internal Medicine; ATTEND Registered Nurse
PROC: 3E033GC Introduction of Other Therapeutic Substance into Peripheral Vein, Percutaneous Approach (ICD-10-PCS; principal; 2016-09-21)
PROC: 3E0337Z Introduction of Electrolytic and Water Balance Substance into Peripheral Vein, Percutaneous Approach (ICD-10-PCS; 2016-09-21)
DX: R74.8 Abnormal levels of other serum enzymes (principal); R10.13 Epigastric pain; I10 Essential (primary) hypertension; E78.5 Hyperlipidemia, unspecified; E03.9 Hypothyroidism, unspecified; M06.9 Rheumatoid arthritis, unspecified; I24.8 Other forms of acute ischemic heart disease; I51.9 Heart disease, unspecified; I11.9 Hypertensive heart disease without heart failure; I43 Cardiomyopathy in diseases classified elsewhere; E11.69 Type 2 diabetes mellitus with other specified complication; K90.0 Celiac disease; Z79.82 Long term (current) use of aspirin
CPT/HCPCS: 36415; 71010-TC; 76700-TC; 80048; 80053; 81003; 81015; 82550; 82553; 83036; 83690; 84443; 84484; 85025; 93005; 93010; 93306-TC; 99285-25; G0378

== ENCOUNTER 2017-10-11 15:13 | Emergency (ER) | payer OTHER, MEDICARE ==
[2017-10-11 15:18] VITALS: BP 161/75; PULSE 66; TEMP 98; BMI 23.8
--- NOTE | 2017-10-11 15:55 | PDOC ---
History of Present Illness - General Chief Complaint: Back Pain Stated Complaint: BACK PAIN Time Seen by Provider: 10/11/17 15:55 History Source: Patient, Spouse - History of Present Illness Initial Comments: 10/11/17 16:29 86 year old female with PMH alzheimers, diabetes, HTN, CHF, hyperthyroidism presents to ED complaining of continued back pain x3.5 weeks. She was seen in [facility] ED for similar complaint, T-spine and L-spine X-ray revealed wedging, arthritis changes, pt was discharged with Motrin prescription and instruction to follow up with PCP. Since then, the pain has persisted, and she developed urinary incontinence x1 week ago. Pt's states they called Dr. Rodriguez and let him know they were seen but did not make an appointment with him. She states her pain is located to her entire back and radiates down her right leg. She also complains of nausea with the pain and constipation x2-3 days. She denies fever, chills, vomiting, weakness, dizziness, headache, chest pain, shortness of breath. Pt last took Motrin at 1400 today with no resolution of symptoms. PCP - Jennifer Allergies - NKDA Past History - Past Medical History Allergies/Adverse Reactions: Allergies Allergy/AdvReac Type Severity Reaction Status Date / Time No Known Allergies Allergy Verified 10/11/17 15:18 Home Medications: Ambulatory Orders Aspirin [ASA -] 81 mg PO DAILY 11/27/12 Doxazosin Mesylate [Cardura Xl] 4 mg PO DAILY 11/27/12 Vitamin E 400 unit PO DAILY 11/27/12 Amlodipine/Valsartan [Exforge 10-160 mg Tablet] 1 each PO DAILY 05/31/13 Calcium 1,000 mg PO DAILY 05/31/13 Cholecalciferol (Vitamin D3) [Vitamin D-400] 400 unit PO DAILY 05/31/13 Cyanocobalamin [Vitamin B12 -] 1,000 mcg PO DAILY 05/31/13 Hydroxychloroquine Sulfate 200 mg PO DAILY 05/31/13 Levothyroxine [Synthroid -] 25 mcg PO DAILY 05/31/13 Multivitamin [Daily Multiple Vitamin] 1 each PO DAILY 05/31/13 Ibuprofen [Motrin -] 400 mg PO QID PRN #28 tablet 10/12/13 Atorvastatin Ca [Lipitor] 10 mg PO HS #30 tablet 09/23/16 Metoprolol Succinate [Toprol XL -] 50 mg PO DAILY #30 tab 09/23/16 Cardiac Disorders: Yes (CHF) COPD: No Diabetes: Yes HTN: Yes Hypercholesterolemia: Yes Thyroid Disease: Yes - Surgical History Abdominal Surgery: Yes (UMBILICAL HERNIA REPAIR) Appendectomy: Yes - Suicide/Smoking/Psychosocial Hx Smoking History: Never smoked Have you smoked in the past 12 months: No Hx Alcohol Use: No Drug/Substance Use Hx: No Substance Use Type: None Review of Systems - Review of Systems Able to Perform ROS?: Yes Comments:: 10/11/17 16:33 ROS was performed with patient and her at the bedside. General: denies fever, chills, night sweats, generalized weakness. HEENT: denies sore throat, rhinorrhea, ear pain. Heart: denies chest pain, palpitations, syncope, lower extremity swelling, diaphoresis. Respiratory: denies shortness of breath, cough, sputum production, hematemesis. Abdomen: admits to nausea. denies abdominal pain, vomiting, diarrhea, constipation, blood in stool. : admits to urinary incontinence. denies dysuria, increased urinary frequency , hematuria, flank pain. Back: admits to back pain. Neurological: denies headache, dizziness, numbness, tingling, weakness. Skin: denies rash, laceration, abrasion. *Physical Exam - Vital Signs Last Vital Signs Temp Pulse Resp BP Pulse Ox 98 F 66 18 161/75 99 10/11/17 15:16 10/11/17 15:16 10/11/17 15:16 10/11/17 15:16 10/11/17 15:16 - Physical Exam Comments: 10/11/17 16:34 Appearance: appears in pain. HEENT: head is normocephalic, atraumatic. EOMI. PERRLA. Horizontal nystagmus with leftward and right gil gaze. No rotary or vertical nystagmus. Neck: supple. Full ROM. Heart: regular rhythm. no murmurs, rubs or gallops. No pericardial friction rub. Lungs: clear to auscultation bilaterally. no crackles, rhonchi or wheezing. no stridor. Abdomen: soft, nontender. normal bowel sounds. no rebound, guarding, masses. Back: no c-spine, t-spine or l-spine midline tenderness to palpation. tenderness to palpation of right lower back. bilateral straight leg test negative. Rectal: good rectal tone. External hemorrhoids visualized. Extremities: Peripheral pulses intact and equal. No lower extremity edema. Neurological: Alert. Oriented x3. CN 2-12 grossly intact. Moves all four extremities. Full neurological examination limited due to pt's baseline dementia. Medical Decision Making - Medical Decision Making 10/11/17 16:47 86 year old female with Alzheimers dementia, diabetes, HTN, CHF, hyperthyroidism c/o continued back pain since fall x4 weeks ago. This is her second visit to [facility] for the same complaint, since her last visit she has developed urinary incontinence. Initial Vital Signs Temp Pulse Resp BP Pulse Ox 98 F 66 18 161/75 99 10/11/17 15:16 10/11/17 15:16 10/11/17 15:16 10/11/17 15:16 10/11/17 15:16 Afebrile. No tachycardia. No hypotension. Pending CT lumbar spine and UA/UC. Tramadol ordered for pain. 10/11/17 17:55 Pt reassessed, states her pain is improving after the Tramadol. Ct lumbar spine report - acute L2 compression fracture, mild grade 1 anterolisthesis of L3 on L4 of approximately 0.3 cm. The remainder the alignment is within normal limits. multilevel degenerative changes with spinal stenosis and neural foraminal narrowing. colonic diverticulosis. 10/11/17 18:15 Pt was able to walk in the Emergency Department. Pending UA. *DC/Admit/Observation/Transfer Diagnosis at time of Disposition: Compression fracture - Discharge Dispostion Disposition: HOME Condition at time of disposition: Improved Decision to Admit order: No - Referrals Referrals: Tono Hampton MD [Primary Care Provider] - Favian Kerns MD [Staff Physician] - - Patient Instructions Printed Discharge Instructions: DI for Vertebral Fracture Additional Instructions: You were seen today for back pain. Your urine analysis was normal. You do not have a urinary tract infection. Your Cat-Scan revealed a compression fracture of your L2 vertebrae. Take Tylenol 1000 mg every 6 hours for pain. You can also take Ibuprofen 400 mg every 4-6 hours. Do not take both Ibuprofen and Naproxen at the same time. Follow up with your primary care doctor, Dr. Rodriguez, within 7 days. Call his office on Friday to schedule an appointment. Bring the paperwork given to you today with you. Follow up with an orthopedic doctor within 7 days. I have written a referral for you to see Dr. Kerns. Call his office on Friday to schedule an appointment. Bring the paperwork given to you today with you. Return to the Emergency Department for weakness of your arms or legs, fever, nausea, vomiting, increasing pain, loss of control of bowels, chest pain, shortness of breath, blood in urine or any other new, worsening or concerning symptoms. - Post Discharge Activity
--- NOTE | 2017-10-11 16:25 | PDOC ---
Attending Attestation - Resident Resident Name: Nguyen Braga - ED Attending Attestation I have performed the following: I have examined & evaluated the patient, The case was reviewed & discussed with the resident, I agree w/resident's findings & plan, Exceptions are as noted - HPI HPI: 10/11/17 16:25 86y F DM, HTN, CHF, alzhemiers, hyperthyrodism, presents with persistent back pain sp fall approx 4 weeks ago. Pt fell in a bathtub approx 4 weeks ago, was seen by myself in this ED 2 weeksa go, had xrays with neg acute finidngs, treated for her pain with improvement. Pt comes today due to persistent pain, she is abmulatory, but she is needing to hold on to her for assistance. The also notes that she has been having some urinary incontinenece in the evenings. During the day, the pt is fine and is urinating ok and has normal BMs. History provided solely from the due to the pts severe dementia and language restirction. On exam the pt is well appearing in no distress mild diffuse tenderness in the lower back normal ROM of extremities/hips/knees sensation intact in lower extremities no focal midline tenderness will obtain UA to r/o UTI will obtain CT of lumbar spine will give tramadol for pain 10/11/17 18:[address] noted for acute L2 fracture no signs of impingmenet pt feeling better, ambulating without any obvious disomfort will dc with pmd fu return precautions were discussed - Physicial Exam PE: 10/11/17 18:16 see above - Medical Decision Making 10/11/17 18:16 see above
[2017-10-11] MEDS ORDERED: traMADol HCL 50 MG TABLET PO ONE (16:58)
[2017-10-11 18:35] LABS: URINE APPEARANCE CLEAR; URINE BILIRUBIN NEGATIVE (<2.0 mg/dL); URINE COLOR YELLOW; URINE GLUCOSE (UA) NEGATIVE (NEGATIVE); URINE KETONE NEGATIVE (NEGATIVE); URINE LEUK ESTERASE NEGATIVE (NEGATIVE); URINE NITRITE NEGATIVE (NEGATIVE)
[2017-10-11 18:36] LABS: URINE PROTEIN 1+ (NEGATIVE)
[2017-10-11 18:39] LABS: EPI CELLS RARE /HPF (FEW); URINE HYALINE CAST 3 /lpf; URINE MUCUS RARE
== END 2017-10-11 18:48 | disposition home or self-care (01) ==
LOC: JER 15:13
DX: M48.54XA Collapsed vertebra, not elsewhere classified, thoracic region, initial encounter for fracture (principal); I10 Essential (primary) hypertension; G30.9 Alzheimer's disease, unspecified; F02.80 Dementia in other diseases classified elsewhere, unspecified severity, without behavioral disturbance, psychotic disturbance, mood disturbance, and anxiety; F05 Delirium due to known physiological condition; I50.9 Heart failure, unspecified; E05.90 Thyrotoxicosis, unspecified without thyrotoxic crisis or storm
CPT/HCPCS: 72131-TC; 81003; 81015; 87086; 99282-25

== ENCOUNTER 2018-01-27 13:17 | Inpatient (IN) | payer OTHER, MEDICARE ==
[2018-01-27 13:34] VITALS: BMI 29.9
--- NOTE | 2018-01-27 14:21 | PDOC ---
History of Present Illness - General Chief Complaint: Injury Stated Complaint: Shortness of Breath Time Seen by Provider: 01/27/18 14:16 History Source: Patient, Family (Son), Spouse () Exam Limitations: Dementia - History of Present Illness Initial Comments: Pt is a 87 yo F, with PMH of NIDDM, HTN, CHF, Alzheimer's dementia, and hyperthyroidism, who is presenting with complaints of SOB. The pt awoke from her nap shortly before presentation, and told her son she "couldn't catch her breath and wants to go to the ER". Of note, the pt was found by her unconscious last night around 9 pm, and was down for approximately 30 minutes. She remembers falling, and states she fell as she was changing her clothes. She was able to get back into the bed, but developed a large bruise over her forehead this morning. The pt has dementia at baseline, and her son and are present at bedside and state the pts behavior is normal for her. Pt denies any recent fevers/chills, headache, vision changes, chest pain, palpitations, nausea/vomiting, abdominal pain, urinary symptoms, diarrhea/constipation, or leg swelling. Social: Pt denies any cigarette, alcohol, or drug use. Pt denies any recent travel or sick contacts. 01/27/18 18:41 02/10/18 14:27 Past History - Travel Traveled outside of the country in the last 30 days: No Close contact w/someone who was outside of country & ill: No - Past Medical History Allergies/Adverse Reactions: Allergies Allergy/AdvReac Type Severity Reaction Status Date / Time No Known Allergies Allergy Verified 01/27/18 13:25 Home Medications: Ambulatory Orders Amlodipine Besylate 5 mg PO DAILY 01/27/18 Doxazosin Mesylate 4 mg PO DAILY 01/27/18 Hydroxychloroquine So4 [Plaquenil -] 200 mg PO DAILY 01/27/18 Levothyroxine [Synthroid -] 25 mcg PO DAILY 01/27/18 Memantine HCl 5 mg PO DAILY 01/27/18 Metoprolol Tartrate 50 mg PO BID 01/27/18 Valsartan [Diovan] 160 mg PO BID 01/27/18 Apixaban [Eliquis -] 2.5 mg PO BID #60 tablet 01/30/18 Atorvastatin Ca [Lipitor] 40 mg PO HS #30 tablet 01/30/18 Cardiac Disorders: Yes (CHF) COPD: No Diabetes: Yes HTN: Yes Hypercholesterolemia: Yes Thyroid Disease: Yes (hyperthyroid) - Surgical History Abdominal Surgery: Yes (UMBILICAL HERNIA REPAIR) Appendectomy: Yes - Suicide/Smoking/Psychosocial Hx Smoking History: Never smoked Have you smoked in the past 12 months: No Hx Alcohol Use: No Drug/Substance Use Hx: No Substance Use Type: None Review of Systems - Review of Systems Able to Perform ROS?: Yes (dementia, limited) Is the patient limited Kyrgyz proficient: Yes Constitutional: Yes: Weight Stable. No: Chills, Fever, Loss of Appetite, Weakness HEENTM: No: Recent change in vision, Nose Congestion, Hearing Loss, Difficulty Swallowing Respiratory: Yes: Shortness of Breath, SOB at Rest. No: Cough, Orthopnea, SOB with Exertion Cardiac (ROS): Yes: See HPI, Syncope. No: Chest Pain, Edema, Irregular Heart Rate, Lightheadedness, Palpitations, Chest Tightness ABD/GI: No: Blood Streaked Bowels, Constipated, Diarrhea, Nausea, Poor Appetite , Poor Fluid Intake, Vomiting, Abdominal cramping : No: Burning, Dysuria, Frequency, Pain, Urgency Musculoskeletal: No: Back Pain, Joint Pain, Muscle Weakness Integumentary: Yes: See HPI, Bruising. No: Rash Neurological: Yes: See HPI, Other (LOC after fall, dementia). No: Headache, Seizure, Unsteady Gait, Ataxia, Dizziness Psychiatric: No: Sleep Pattern Change, Change in Appetite Endocrine: No: Increased Urine, Change in Weight Hematologic/Lymphatic: No: Anemia, Blood Clots, Easy Bleeding, Easy Bruising *Physical Exam - Vital Signs Last Vital Signs Temp Pulse Resp BP Pulse Ox 97.4 F L 98 H 16 146/77 97 01/27/18 13:25 01/27/18 13:25 01/27/18 13:25 01/27/18 13:25 01/27/18 13:25 - Physical Exam General Appearance: Yes: Nourished, Appropriately Dressed. No: Apparent Distress (saturating well on RA, vitals stable. area of ecchymosis over R forehead/eye, but does not appear uncomforatble) HEENT: positive: EOMI, GIUSEPPE, Normal Voice, TMs Normal, Pharynx Normal, Hearing Grossly Normal. negative: Normal ENT Inspection (ecchymosis over R forehead/ eye after fall), Scleral Icterus (R), Scleral Icterus (L), Pharyngeal Erythema, Tonsillar Exudate, Tonsillar Erythema, Rhinorrhea, TM Bulging (no hemotympanum/ CSF leakage), TM Dull, TM Erythema Neck: positive: Trachea midline, Normal Thyroid, Supple. negative: Tender, Rigid, Decreased range of motion, Lymphadenopathy (R), Lymphadenopathy (L), Rigidity, Tender lateral, Tender midline Respiratory/Chest: positive: Lungs Clear, Normal Breath Sounds. negative: Chest Tender, Respiratory Distress, Accessory Muscle Use, Crackles, Wheezing Cardiovascular: positive: Regular Rhythm, Regular Rate, S1, S2, Edema (RLE edema > LLE, no significant pedal pitting). negative: JVD, Murmur Vascular Pulses: Carotid (R): 4+, Carotid (L): 4+ Gastrointestinal/Abdominal: positive: Normal Bowel Sounds, Flat, Soft. negative : Tender, Organomegaly, Pulsatile Mass, Distended, Guarding, Rebound Rectal Exam: positive: deferred Lymphatic: negative: Adenopathy, Tenderness Musculoskeletal: positive: Normal Inspection. negative: CVA Tenderness, Vertebral Tenderness Extremity: positive: Normal Capillary Refill, Normal Inspection, Normal Range of Motion, Pelvis Stable, Pedal Edema (RLE edema > LLE), Swelling. negative: Tender, Cyanosis, Calf Tenderness Integumentary: positive: Normal Color, Dry, Warm, Ecchymosis (see above). 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 negative: Fully Oriented (dementia, oriented to person (pt at baseline)), EOM Palsy, Facial Droop, Sensory Deficit, Finger to Nose, Depressed Affect ED Treatment Course - LABORATORY CBC & Chemistry Diagram: 01/28/18 05:30 01/29/18 05:30 Medical Decision Making - Medical Decision Making Pt was seen at bedside, also will be seen by attending Dr. Car. Pt presenting with complaints of SOB. The pt awoke from her nap shortly before presentation, and told her son she "couldn't catch her breath and wants to go to the ER". Of note, the pt was found by her unconscious last night around 9 pm, and was down for approximately 30 minutes. She remembers falling, and states she fell as she was changing her clothes. She was able to get back into the bed, but developed a large bruise over her forehead this morning. The pt has dementia at baseline, and her son and are present at bedside and state the pts behavior is normal for her. Pt denies any recent fevers/chills, headache, vision changes, chest pain, palpitations, nausea/vomiting, abdominal pain, urinary symptoms, diarrhea/constipation, or leg swelling. ECG showed HR 111, TX 124, QRS 142, QTc 514; sinus tachycardia with PACs, RBBB. Compared to prior ECG (09/29/2017), no changes to T waves/ST segments, no PACs prior. Vitals stable, pt saturating 97% on RA. PE showed RLE>LLE, no pitting edema. Pt oriented to year and place (pt baseline per son). Considering mechanical fall with concussion vs precipitating fall factors including PE vs infections (pneumonia, UTI) vs cardiac (ACS, CHF exacerbation) vs stroke vs metabolic (electrolyte imbalance, hypoglycemia). Ordered work-up including CBC, CMP, lactic acid, Mg, troponin, ECG, UA, urine culture, portable chest x-ray, non-contrast head CT, and RLE doppler. Provided 1 L IV NS for improvement of possible dehydration. Will continue to reassess pt and monitor for symptomatic improvement. 01/27/18 15:00 [id number] CT/HEAD CT WITHOUT CONTRAST Cranial CT without contrast Clinical information given: fall yesterday, loss of consciousness, evaluate for bleed No intracranial hemorrhage is seen. There is no CT evidence of intracranial injury or calvarial fracture. No extra-axial fluid collection is noted. There has been no definite interval change in comparison to a prior CT study of 08/08/2016. Moderate periventricular and subcortical white matter microvascular ischemic gliosis is seen. There is a possible small chronic left frontoparietal cortical/subcortical infarct (versus representing more localized microvascular ischemic gliosis). No obvious mass lesion is identified on noncontrast imaging. Involutional changes are noted with moderate ventricular dilatation which is somewhat asymmetric. Incidental note is again made of a stable 0.6 cm sclerotic focus within the diploic space of the right frontal calvarium. IMPRESSION: No CT evidence of acute intracranial pathology. Moderate periventricular and subcortical chronic microvascular ischemic changes. Possible small chronic left frontoparietal cortical/subcortical infarct. There has been no definite interval change in comparison to a CT exam of 2016. 01/27/18 16:[address] (r/o C-spine) and CTA to r/o PE. Pending imaging results. CBC: H/H 10.5/29.8 CMP: BUN 22/Cr 0.8 Coags WNL, Lactic 1.4, Trop 0.12, BNP 941. Chest x-ray clear, no acute infiltrates. Mild cardiomegaly, but appears unchanged from prior, and no b/l pitting edema or JVD on exam. Unlikely CHF exacerbation. Head CT showed no acute pathology -- ordering 325 mg PO aspirin, as troponin elevated. 01/27/18 16:51 Pt returned from CTA and CT neck, pending results. 01/27/18 17:46 [id number] US/DUPLEX VASCUL US-1 LEG HISTORY PROVIDED: Pain and swelling right lower extremity. Real time and doppler evaluation of the right lower extremity demonstrates the following: There is no evidence of deep venous thrombosis within the common, deep and superficial femoral veins, as well as the popliteal and posterior tibial veins. The greater saphenous vein is also patent. These veins are fully compressible, as well. IMPRESSION: No evidence of deep venous thrombosis. 01/27/18 17:54 C-spine negative for acute pathology, only chronic degenerative arthritis. 01/27/18 18:27 [id number] CT/CHEST CTA HISTORY PROVIDED: Rule out PE. TECHNIQUE: Sequential axial images were obtained from the thoracic inlet through the domes of the diaphragm following the administration of intravenous contrast material. CTA pulmonary embolism protocol was utilized, including coronal and oblique coronal MIP images. The study is somewhat limited. There is adequate opacification of the central pulmonary vasculature with no filling defects suspicious for pulmonary embolism. The lung young are free of pulmonary masses, areas of acute consolidation or pleural effusions. There are increased interstitial markings diffusely, as well as atelectatic changes involving both lower lobes. No mediastinal masses, fluid collections or lymphadenopathy are identified. The heart is enlarged with a small amount of pericardial fluid. Limited evaluation of the upper abdomen demonstrates no acute abnormalities. Small gallstones are identified within the gallbladder. IMPRESSION: Somewhat limited examination with no evidence of pulmonary embolism or acute pathology. Please see above discussion. 01/27/18 18:38 Hospitalist paged for admission to inpatient service. 01/27/18 18:40 Hospitalist team returned page, accepted for admission (will go to Dr. Hamlin). Pt stable, sending additional troponin. 01/27/18 18:49 02/10/18 14:17 02/10/18 14:25 *DC/Admit/Observation/Transfer Diagnosis at time of Disposition: Shortness of breath, Elevated troponin Closed head injury Qualifiers: Encounter type: initial encounter Qualified Code(s): S09.90XA - Unspecified injury of head, initial encounter - Discharge Dispostion Disposition: HOME Condition at time of disposition: Stable Decision to Admit order: Yes - Prescriptions - Referrals - Patient Instructions - Post Discharge Activity
[2018-01-27] MEDS ORDERED: SODIUM CHLORIDE 1,000 ML IV STA (14:40)
[2018-01-27 15:18] LABS: BASO % 1.1 % (0-2.0); EOS % 3.1 % (0-4.5); HEMATOCRIT 29.8 % (32.4-45.2); HEMOGLOBIN 10.5 GM/dL (10.7-15.3); LYMPH % 29.2 % (8-40); MCH 31.3 pg (25.7-33.7); MCHC 35.4 g/dl (32.0-36.0); MEAN CELL VOLUME 88.6 fl (80-96); MEAN PLT VOLUME 7.6 fl (7.5-11.1); NEUT % 49.6 % (42.8-82.8); PLATELET COUNT 445 K/MM3 (134-434); RBC 3.36 M/mm3 (3.60-5.2); WHITE BLOOD COUNT 4.1 K/mm3 (4.0-10.0)
[2018-01-27 15:24] LABS: URINE APPEARANCE CLEAR; URINE BILIRUBIN NEGATIVE (<2.0 mg/dL); URINE COLOR LTYELLOW; URINE GLUCOSE (UA) NEGATIVE (NEGATIVE); URINE KETONE NEGATIVE (NEGATIVE); URINE LEUK ESTERASE NEGATIVE (NEGATIVE); URINE NITRITE NEGATIVE (NEGATIVE); URINE PROTEIN 2+ (NEGATIVE)
[2018-01-27 15:31] LABS: EPI CELLS RARE /HPF (FEW)
[2018-01-27 15:39] LABS: INR 1.03 (0.83-1.09); PROTHROMBIN TIME (PATIENT) 12.2 SEC (9.7-13.0)
[2018-01-27 15:48] LABS: ALBUMIN 2.8 g/dl (3.4-5.0); ALK PHOS 184 U/L (45-117); ANION GAP 10 MMOL/L (8-16); BILIRUBIN,TOTAL 0.3 mg/dL (0.2-1); BLOOD UREA NITROGEN 22 mg/dL (7-18); CALCIUM 8.5 mg/dL (8.5-10.1); CHLORIDE 99 mmol/L (98-107); CO2 25 mmol/L (21-32); CREATININE 0.8 mg/dL (0.55-1.3); GLUCOSE,RANDOM 118 mg/dL (74-106); N-TERMINAL BNP 941.5 pg/ml (5-450); POTASSIUM 3.6 mmol/L (3.5-5.1); SGOT/AST 24 U/L (15-37); SGPT/ALT 26 U/L (13-61); SODIUM 133 mmol/L (136-145)
[2018-01-27] MEDS ORDERED: ASPIRIN 325 MG TABLET PO ONE (16:55)
[2018-01-27] MEDS ORDERED: ASPIRIN 81 MG CHEWABLE TABLETS ONE (17:37)
--- NOTE | 2018-01-27 18:30 | PDOC ---
Attending Attestation - Resident Resident Name: Delores Cabrera - ED Attending Attestation I have performed the following: I have examined & evaluated the patient, The case was reviewed & discussed with the resident, I agree w/resident's findings & plan, Exceptions are as noted - HPI HPI: 01/27/18 18:24 The patient is an 86 year old female with a significant past medical history of alzheimers, diabetes, HTN, CHF, hyperthyroidism presents to ED for evaluation of SOB since waking up from a nap this morning. History provided by the son who also states she asked him to take her to this hospital. Pt reports feeling SOB at this time as well. Son states she also had an unwitnessed fall yesterday, and he found her on the ground at which point he helped her into bed. Pt has been ambulating since last night but he states she sustained a bruise to her right forehead from the fall. History is limited due to dementia. PCP - DeMateo Allergies - NKDA Social Hx: Denies toxic habits. - Physicial Exam PE: 01/27/18 18:27 GENERAL: Awake, alert, oriented to name, in no acute distress HEAD: +older appearing bruise over R forehead EYES:EOMI, sclera anicteric, conjunctiva clear ENT: Hearing grossly normal, nares patent, oropharynx clear without exudates. Moist mucosa NECK: Normal ROM, supple, no lymphadenopathy, JVD, or masses LUNGS: Breath sounds equal, clear to auscultation bilaterally. No wheezes, and no crackles HEART: Regular rate and rhythm, normal S1 and S2, no murmurs, rubs or gallops ABDOMEN: Soft, nontender, normoactive bowel sounds. No guarding, no rebound. No masses EXTREMITIES: Normal range of motion, trace RLE edema. No cords, erythema, or tenderness. Pelvis stable BACK: No midline spinal tenderness in cervical/thoracic/lumbar region NEUROLOGICAL: Normal speech, cranial nerves intact, 5/5 strength in all 4 extremities, normal sensation to light touch in all 4 extremities, normal gait, normaltone SKIN: as noted in head exam - Medical Decision Making 01/27/18 18:33 87yo F presents to the ED with unwitnessed fall yesterday and SOB. 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 Cabrera Case discussed in detail with admitting physician including history, physical exam and ancillary studies. Admitting physician has assumed care for the patient, will follow all pending diagnostics and will complete the evaluation and treatment. Heart Score/ECG Review #1 01/27/18 18:30 Twelve-lead EKG was performed and reviewed by me. lustedSinus tachycardia, rate 111 normal axis. +PACs. TWI in III, V3. Compared to EKG from 09/29/17, flipped TW in V3 is new.
--- NOTE | 2018-01-27 21:55 | HP ---
Admitting History and Physical - Primary Care Physician PCP: Vandana Omer S - Admission Chief Complaint: Shortness of breath History of Present Illness: 86 year old F with h/o HTN, CHF, hyperthyroidism and alzheimers dementia presents with ED with c/o SOB which started at 11am on the morning of 01/27. As per Son (alis), pt sustained a mechanical fall last night while getting undressed. She suffered LOC and was noted found until approximately 30min later by her . She did not have any complaints at that point in time. However, when she reported SOB on the morning of 01/27, the family decided to take her into the ED for evaluation. 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 Cardiovascular: Yes: CHF, HTN (cardiomyopathy), Murmur Gastrointestinal: Yes: Other (celiac sprue) Reproductive: Yes: Postmenopausal Infectious Disease: No: AIDS, C-Diff, Herpes Zoster, HIV, MRSA, STD's, Tuberculosis, VREF, Other Psych: No: Addictions, Anxiety, Bipolar, Depression, Panic, Psychosis, Schizophrenia, Other Musculoskeletal: Yes: Osteoarthritis, Other (compression fracture) Rheumatology: Yes: Rheumatoid Arthritis ENT: Yes: Allergic Rhinitis Endocrine: Yes: Diabetes Mellitus, Hypothyroidism - Past Surgical History Past Surgical History: Yes: Appendectomy (umbilical hernia repair), Hernia Repair - Advance Directives Advance Directives: Yes: DNR ( to bring copy of DNR forms) - Smoking History Smoking history: Never smoked Have you smoked in the past 12 months: No - Alcohol/Substance Use Hx Alcohol Use: No History of Substance Use: reports: None - Social History Usual Living Arrangement: Yes: With Spouse ADL: Independent Occupation: retired History of Recent Travel: No Home Medications - Allergies Allergies/Adverse Reactions: Allergies Allergy/AdvReac Type Severity Reaction Status Date / Time No Known Allergies Allergy Verified 01/27/18 13:25 - Home Medications Home Medications: Ambulatory Orders Amlodipine Besylate 5 mg PO DAILY 01/27/18 Doxazosin Mesylate 4 mg PO DAILY 01/27/18 Hydroxychloroquine So4 [Plaquenil -] 200 mg PO DAILY 01/27/18 Levothyroxine [Synthroid -] 25 mcg PO DAILY 01/27/18 Memantine HCl 5 mg PO DAILY 01/27/18 Metoprolol Tartrate 50 mg PO BID 01/27/18 Valsartan [Diovan] 160 mg PO BID 01/27/18 Family Disease History - Family Disease History Family Disease History: Diabetes: Mother (), Heart Disease: Father ( ) Review of Systems - Review of Systems Constitutional: reports: No Symptoms Eyes: reports: No Symptoms HENT: reports: No Symptoms Neck: reports: No Symptoms Cardiovascular: reports: Shortness of Breath Respiratory: reports: SOB Gastrointestinal: reports: No Symptoms Genitourinary: reports: No Symptoms Musculoskeletal: reports: Joint Pain, Muscle Weakness Integumentary: reports: Bruising (right side of forehead) Neurological: reports: Unsteady Gait, Weakness (memory loss 2/2 dementia) Endocrine: reports: No Symptoms Hematology/Lymphatic: reports: No Symptoms Physical Examination Vital Signs: Vital Signs Temperature 98.2 F 01/27/18 19:16 Pulse Rate 81 01/27/18 19:16 Respiratory Rate 17 01/27/18 19:16 Blood Pressure 140/80 01/27/18 19:16 O2 Sat by Pulse Oximetry (%) 98 01/27/18 19:16 Constitutional: Yes: No Distress, Calm, Thin Eyes: Yes: Conjunctiva Clear, PERRL. No: WNL, EOM Intact, Cataracts, Diplopia, Occular Prosthesis, Ptosis, Sclera Icterus, Tearing, Other HENT: Yes: Normocephalic Neck: Yes: Supple, Trachea Midline. No: WNL, Decreased ROM, Lymphadenopathy, Rigid, Tenderness, Thyromegaly, Other Cardiovascular: Yes: Regular Rate and Rhythm, Murmur (systolic murmur) Respiratory: Yes: Regular, CTA Bilaterally. No: WNL, Accessory Muscle Use, Bradypnea, Shan-Pang, Cough, Diminished, Dullness, Hyperresonant, Intubated , Kussmaul, Mechanically Ventilated, On BiPap, On Nasal O2, On Venti-Mask, Orthopnea, Poor Air Entry, Rales, Rhonchi, SOB, SOB on Exertion, Stridor, Tachypnea, Wheezes, Other Gastrointestinal: Yes: Normal Bowel Sounds, Soft ...Rectal Exam: Yes: Deferred Musculoskeletal: Yes: WNL Extremities: Yes: WNL Edema: No Peripheral Pulses WNL: Yes Peripheral Pulses: Left Radial: 2+, Right Radial: 2+ Integumentary: Yes: WNL (areas of dry skin patches) Neurological: Yes: Alert (poor historian,) ...Motor Strength: WNL Psychiatric: Yes: Alert Labs: CBC, BMP 01/27/18 14:43 01/27/18 14:43 Imaging - Results Chest X-ray: Report Reviewed (CXR 01/27: cardiomegaly, no acute disease) Cat Scan: Report Reviewed (Head CT 01/27: impression: no acute intracranial pathology. moderate periventricular and subcortical chronic microvascular ischemic changes. Possible small chronic left frontoparietal cortical/ subcortical infarct.), Other (C-spine CT 01/27: moderate degenerative arthritis with no frcature or acute pathology.) Ultrasound: Report Reviewed (RLE doppler study 01/27: no evidence of DVT) Other: Report Reviewed (Chest CT 01/27: Somewhat limited exam wth no evidence of pulmonary embolism or acute pathology.) Problem List - Problems (1) Fall at home Assessment/Plan: fall precautions tylenol PRN pain Code(s): W19.XXXA - UNSPECIFIED FALL, INITIAL ENCOUNTER; Y92.009 - UNSP PLACE IN UNSP NON-INSTITUT (PRIVATE) RESIDENCE PLACE (2) Elevated troponin Code(s): R74.8 - ABNORMAL LEVELS OF OTHER SERUM ENZYMES (3) Shortness of breath Assessment/Plan: 2L NC as needed monitor I and O Code(s): R06.02 - SHORTNESS OF BREATH (4) Acute coronary syndrome Assessment/Plan: cardiology consult for elevated troponin If chest pain occurs, would consider heparin drip start ASA 81mg in AM start statin therapy pt on metoprolol 50mg BID, will continue Code(s): I24.9 - ACUTE ISCHEMIC HEART DISEASE, UNSPECIFIED (5) Alzheimer's dementia without behavioral disturbance Assessment/Plan: continue memantine frequent reorientation Code(s): G30.9 - ALZHEIMER'S DISEASE, UNSPECIFIED; F02.80 - DEMENTIA IN OTH DISEASES CLASSD ELSWHR W/O BEHAVRL DISTURB (6) Hypertensive cardiomyopathy Assessment/Plan: norvasc 5mg daily valsartan 160mg daily, would hold ARB if pt needs cardiac cath cardiac/diabetic diet Code(s): I11.9 - HYPERTENSIVE HEART DISEASE WITHOUT HEART FAILURE; I43 - CARDIOMYOPATHY IN DISEASES CLASSIFIED ELSEWHERE Qualifiers: Heart failure presence: without heart failure Qualified Code(s): I11.9 - Hypertensive heart disease without heart failure (7) Rheumatoid arthritis Assessment/Plan: continue plaquenil 200mg daily Code(s): M06.9 - RHEUMATOID ARTHRITIS, UNSPECIFIED Qualifiers: Rheumatoid arthritis location: unspecified site (8) Hypothyroidism Assessment/Plan: continue synthroid 25mcg qam f/u TSH and T4F in AM bowel regimen with senna and colace Code(s): E03.9 - HYPOTHYROIDISM, UNSPECIFIED Qualifiers: Hypothyroidism type: unspecified Qualified Code(s): E03.9 - Hypothyroidism , unspecified Assessment/Plan DMII -Low dose insulin SS -diabetic diet -f/u lipids panel and A1c DISPO -as per son and , pt is DNR. Family should bring paperwork or sign new forms tomorrow when they visit Visit type - Emergency Visit Emergency Visit: Yes ED Registration Date: 01/27/18 Care time: The patient presented to the Emergency Department on the above date and was hospitalized for further evaluation of their emergent condition. - New Patient This patient is new to me today: Yes Date on this admission: 01/27/18 - Critical Care Critical Care patient: No
[2018-01-27] MEDS ORDERED: POTASSIUM CHLORIDE ORAL LIQUID 20 MEQ/15 ML PO ONE (22:29)
[2018-01-27 23:36] LABS: ARTERIAL BLD GAS O2 SATURATION 96.8 % (90-98.9); ARTERIAL BLOOD GAS BASE EXCESS 2.2 meq/l (-2-2); ARTERIAL BLOOD GAS PCO2 35.9 mmHg (35-45); ARTERIAL BLOOD GAS PO2 85.9 mmHg (68-100); ARTERIAL BLOOD GAS pH 7.47 (7.35-7.45)
[2018-01-27 23:37] LABS: ALLENS TEST POSITIVE
[2018-01-27] MEDS ORDERED: POTASSIUM CHLORIDE ORAL LIQUID 20 MEQ/15 ML ONE (23:47)
[2018-01-27] MEDS ORDERED: HEPARIN NA (PORCINE) 5,000 UNITS/ML 1ML VIAL ONE (23:47)
[2018-01-27] MEDS: HEPARIN NA (PORCINE) 5,000 UNITS/ML 1ML VIAL SQ SCH (23:50)
--- NOTE | 2018-01-27 23:57 | CON.CARD ---
Consult - History of Present Illness History of Present Illness: 86 year old F with h/o HTN, CHF, hyperthyroidism and alzheimers dementia presents with ED with c/o SOB which started at 11am on the morning of 01/27. As per Son (alis), pt sustained a mechanical fall last night while getting undressed. She suffered LOC and was noted found until approximately 30min later by her . She did not have any complaints at that point in time. However, when she reported SOB on the morning of 01/27, the family decided to take her into the ED for evaluation. 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 Cardio/Vascular: Yes: CHF, HTN (cardiomyopathy), Murmur Gastrointestinal: Yes: Other (celiac sprue) Infectious Disease: No: AIDS, C-Diff, Herpes Zoster, HIV, MRSA, STD's, Tuberculosis, VREF, Other Psych: No: Addictions, Anxiety, Bipolar, Depression, Panic, Psychosis, Schizophrenia, Other Musculoskeletal: Yes: Osteoarthritis, Other (compression fracture) Rheumatology: Yes: Rheumatoid Arthritis ENT: Yes: Allergic Rhinitis Endocrine: Yes: Diabetes Mellitus, Hypothyroidism - Past Surgical History Past Surgical History: Yes: Appendectomy (umbilical hernia repair), Hernia Repair - Alcohol/Substance Use Hx Alcohol Use: No History of Substance Use: reports: None - Smoking History Smoking history: Never smoked Have you smoked in the past 12 months: No - Social History ADL: Independent Occupation: retired History of Recent Travel: No Home Medications - Allergies Allergies/Adverse Reactions: Allergies Allergy/AdvReac Type Severity Reaction Status Date / Time No Known Allergies Allergy Verified 01/27/18 13:25 - Home Medications Home Medications: Ambulatory Orders Amlodipine Besylate 5 mg PO DAILY 01/27/18 Doxazosin Mesylate 4 mg PO DAILY 01/27/18 Hydroxychloroquine So4 [Plaquenil -] 200 mg PO DAILY 01/27/18 Levothyroxine [Synthroid -] 25 mcg PO DAILY 01/27/18 Memantine HCl 5 mg PO DAILY 01/27/18 Metoprolol Tartrate 50 mg PO BID 01/27/18 Valsartan [Diovan] 160 mg PO BID 01/27/18 Family Disease History - Family Disease History Family Disease History: Diabetes: Mother (), Heart Disease: Father ( ) Review of Systems - Review of Systems Constitutional: reports: No Symptoms Eyes: reports: No Symptoms HENT: reports: No Symptoms Neck: reports: No Symptoms Cardiovascular: reports: No Symptoms Respiratory: reports: No Symptoms Gastrointestinal: reports: No Symptoms Genitourinary: reports: No Symptoms Breasts: reports: No Symptoms Reported Musculoskeletal: reports: No Symptoms Integumentary: reports: No Symptoms Neurological: reports: Syncope Endocrine: reports: No Symptoms Hematology/Lymphatic: reports: No Symptoms Psychiatric: reports: No Symptoms Vital Signs: Vital Signs Temperature 98.2 F 01/27/18 19:16 Pulse Rate 81 01/27/18 19:16 Respiratory Rate 17 01/27/18 19:16 Blood Pressure 140/80 01/27/18 19:16 O2 Sat by Pulse Oximetry (%) 98 01/27/18 19:16 Constitutional: Yes: Well Nourished, No Distress, Calm Eyes: Yes: WNL, Conjunctiva Clear, EOM Intact HENT: Yes: WNL, Atraumatic, Normocephalic Neck: Yes: WNL, Supple, Trachea Midline Respiratory: Yes: WNL, Regular, CTA Bilaterally Gastrointestinal: Yes: WNL, Normal Bowel Sounds Renal/: Yes: WNL Cardiovascular: Yes: WNL, Regular Rate and Rhythm Musculoskeletal: Yes: WNL Extremities: Yes: WNL Integumentary: Yes: WNL Neurological: Yes: WNL, Alert, Oriented ...Motor Strength: WNL Psychiatric: Yes: WNL, Alert, Oriented - Other Data Labs, Other Data: CBC, BMP 01/27/18 14:43 01/27/18 14:43 INR, PTT INR 1.03 (0.83-1.09) 01/27/18 14:43 Troponin, BNP 01/27/18 01/27/18 01/27/18 14:43 14:43 19:00 Troponin I 0.12 H 0.13 H B-Natriuretic Peptide 941.5 H Cancelled Troponin, BNP 01/27/18 01/27/18 01/27/18 14:43 14:43 19:00 Troponin I 0.12 H 0.13 H B-Natriuretic Peptide 941.5 H Cancelled Imaging - Results Chest X-ray: Pending EKG: Image Reviewed (nsr apcs RBBB) Problem List - Problems (1) Alzheimer's dementia without behavioral disturbance Code(s): G30.9 - ALZHEIMER'S DISEASE, UNSPECIFIED; F02.80 - DEMENTIA IN OTH DISEASES CLASSD ELSWHR W/O BEHAVRL DISTURB (2) Closed head injury Code(s): S09.90XA - UNSPECIFIED INJURY OF HEAD, INITIAL ENCOUNTER Qualifiers: Encounter type: initial encounter Qualified Code(s): S09.90XA - Unspecified injury of head, initial encounter (3) Elevated troponin Code(s): R74.8 - ABNORMAL LEVELS OF OTHER SERUM ENZYMES (4) Fall at home Code(s): W19.XXXA - UNSPECIFIED FALL, INITIAL ENCOUNTER; Y92.009 - UNSP PLACE IN UNSP NON-INSTITUT (PRIVATE) RESIDENCE PLACE (5) Shortness of breath Code(s): R06.02 - SHORTNESS OF BREATH (6) Acute coronary syndrome Code(s): I24.9 - ACUTE ISCHEMIC HEART DISEASE, UNSPECIFIED (7) Back pain Code(s): M54.9 - DORSALGIA, UNSPECIFIED Qualifiers: Back pain location: thoracic back pain Chronicity: unspecified Back pain laterality: midline Qualified Code(s): M54.6 - Pain in thoracic spine (8) Cardiac enzymes elevated Code(s): R74.8 - ABNORMAL LEVELS OF OTHER SERUM ENZYMES (9) Celiac disease/sprue Code(s): K90.0 - CELIAC DISEASE (10) Compression fracture Code(s): [id number] - (11) Demand ischemia Code(s): I24.8 - OTHER FORMS OF ACUTE ISCHEMIC HEART DISEASE (12) Diastolic dysfunction without heart failure Code(s): I51.9 - HEART DISEASE, UNSPECIFIED (13) Epigastric pain Code(s): R10.13 - EPIGASTRIC PAIN (14) Hyperlipidemia associated with type 2 diabetes mellitus Code(s): E11.69 - TYPE 2 DIABETES MELLITUS WITH OTHER SPECIFIED COMPLICATION; E78.5 - HYPERLIPIDEMIA, UNSPECIFIED (15) Hypertensive cardiomyopathy Code(s): I11.9 - HYPERTENSIVE HEART DISEASE WITHOUT HEART FAILURE; I43 - CARDIOMYOPATHY IN DISEASES CLASSIFIED ELSEWHERE Qualifiers: Heart failure presence: without heart failure Qualified Code(s): I11.9 - Hypertensive heart disease without heart failure (16) Hypothyroidism Code(s): E03.9 - HYPOTHYROIDISM, UNSPECIFIED Qualifiers: Hypothyroidism type: unspecified Qualified Code(s): E03.9 - Hypothyroidism , unspecified (17) Muscle strain Code(s): T14.8 - OTHER INJURY OF UNSPECIFIED BODY REGION * DO NOT USE * (18) Rheumatoid arthritis Code(s): M06.9 - RHEUMATOID ARTHRITIS, UNSPECIFIED Qualifiers: Rheumatoid arthritis location: unspecified site (19) Type 2 diabetes mellitus Code(s): E11.9 - TYPE 2 DIABETES MELLITUS WITHOUT COMPLICATIONS Qualifiers: Diabetes mellitus oil heaterman insulin use: without nursing home use Diabetes mellitus complication status: without complication Qualified Code(s): E11.9 - Type 2 diabetes mellitus without complications Assessment/Plan HTN, CHF, hyperthyroidism and alzheimers dementia presents with ED with c/o SOB which started at 11am on the morning of 01/27. As per Son (alis), pt sustained a mechanical fall last night while getting undressed. She suffered LOC and was noted found until approximately 30min later by her . ?CHF elevated BNP plan telemetry echo c. duplex CXR Dr. Singh will take over patient is being seen by dr. Omer in the office.
[2018-01-28] MEDS: LEVOTHYROXINE NA 25 MCG TABLET (FP) PO SCH (06:54)
[2018-01-28] MEDS: INSULIN SLIDING SCALE (NOVOLOG) 1 VIAL SQ SCH ×4 (06:57→22:02)
[2018-01-28] MEDS ORDERED: INSULIN SLIDING SCALE (NOVOLOG) 1 VIAL SQ SCH (07:00)
[2018-01-28 07:29] LABS: HEMATOCRIT 30.1 % (32.4-45.2); HEMOGLOBIN 10.6 GM/dL (10.7-15.3); MCH 31.3 pg (25.7-33.7); MCHC 35.3 g/dl (32.0-36.0); MEAN CELL VOLUME 88.8 fl (80-96); PLATELET COUNT 428 K/MM3 (134-434); RBC 3.39 M/mm3 (3.60-5.2); RDW 16.1 % (11.6-15.6); WHITE BLOOD COUNT 4.7 K/mm3 (4.0-10.0)
[2018-01-28 07:48] LABS: INR 1.03 (0.83-1.09); PROTHROMBIN TIME (PATIENT) 12.1 SEC (9.7-13.0)
[2018-01-28 07:50] LABS: ACTIVATED PTT 26.3 SECONDS (25.2-36.5)
[2018-01-28 08:26] LABS: ANION GAP 11 MMOL/L (8-16); BLOOD UREA NITROGEN 12 mg/dL (7-18); CALCIUM 8.6 mg/dL (8.5-10.1); CHLORIDE 102 mmol/L (98-107); CO2 26 mmol/L (21-32); CREATININE 0.6 mg/dL (0.55-1.3); GLUCOSE,RANDOM 84 mg/dL (74-106); MAGNESIUM 1.9 mg/dL (1.8-2.4); PHOSPHOROUS 3.8 mg/dL (2.5-4.9); POTASSIUM 3.4 mmol/L (3.5-5.1); SODIUM 139 mmol/L (136-145)
[2018-01-28] MEDS ORDERED: POTASSIUM CHLORIDE TABS 20 MEQ TABLET.ER (FP) PO ONE (09:01)
--- NOTE | 2018-01-28 09:03 | PN ---
Progress Note, Physician - Current Medication List Current Medications: Active Medications Amlodipine Besylate (Norvasc -) 5 mg PO DAILY [facility] Atorvastatin Calcium (Lipitor -) 40 mg PO HS [facility] Doxazosin Mesylate (Cardura -) 4 mg PO DAILY [facility] Heparin Sodium (Porcine) (Heparin -) 5,000 unit SQ BID [facility] Last Admin: 01/27/18 23:50 Dose: 5,000 unit Hydroxychloroquine Sulfate (Plaquenil -) 200 mg PO DAILY [facility] Insulin Aspart (Novolog Vial Sliding Scale -) 1 vial SQ ACHS [facility]; Protocol Last Admin: 01/28/18 06:57 Dose: Not Given Levothyroxine Sodium (Synthroid -) 25 mcg PO 0700 [facility] Last Admin: 01/28/18 06:54 Dose: 25 mcg Memantine (Namenda -) 5 mg PO DAILY [facility] Metoprolol Tartrate (Lopressor -) 50 mg PO BID [facility] Potassium Chloride (K-Dur -) 20 meq PO ONCE ONE Stop: 01/28/18 09:02 Valsartan (Diovan -) 160 mg PO BID [facility] - Objective Vital Signs: Vital Signs Temperature 98.0 F 01/28/18 08:34 Pulse Rate 88 01/28/18 08:34 Respiratory Rate 19 01/28/18 08:34 Blood Pressure 138/79 01/28/18 08:34 O2 Sat by Pulse Oximetry (%) 98 01/28/18 03:00 Labs: CBC, BMP 01/28/18 05:30 01/28/18 05:30 INR, PTT INR 1.03 (0.83-1.09) 01/28/18 05:30 Problem List - Problems (1) Fall at home Assessment/Plan: fall precautions tylenol PRN pain Code(s): W19.XXXA - UNSPECIFIED FALL, INITIAL ENCOUNTER; Y92.009 - UNSP PLACE IN UNSP NON-INSTITUT (PRIVATE) RESIDENCE PLACE (2) Alzheimer's dementia without behavioral disturbance Assessment/Plan: continue memantine frequent reorientation Code(s): G30.9 - ALZHEIMER'S DISEASE, UNSPECIFIED; F02.80 - DEMENTIA IN OTH DISEASES CLASSD ELSWHR W/O BEHAVRL DISTURB (3) Elevated troponin Assessment/Plan: 2L NC as needed monitor I and O cardiology consult for elevated troponin If chest pain occurs, would consider heparin drip start ASA 81mg start statin therapy pt on metoprolol 50mg BID, will continue Code(s): R74.8 - ABNORMAL LEVELS OF OTHER SERUM ENZYMES (4) Hypothyroidism Assessment/Plan: continue synthroid 25mcg qam f/u TSH and T4F in AM bowel regimen with senna and colace Code(s): E03.9 - HYPOTHYROIDISM, UNSPECIFIED Qualifiers: Hypothyroidism type: unspecified Qualified Code(s): E03.9 - Hypothyroidism , unspecified (5) Type 2 diabetes mellitus Assessment/Plan: -Low dose insulin SS -diabetic diet -f/u lipids panel and A1c Code(s): E11.9 - TYPE 2 DIABETES MELLITUS WITHOUT COMPLICATIONS Qualifiers: Diabetes mellitus exterminator insulin use: without custodial use Diabetes mellitus complication status: without complication Qualified Code(s): E11.9 - Type 2 diabetes mellitus without complications (6) Hypertensive cardiomyopathy Assessment/Plan: norvasc 5mg daily valsartan 160mg daily, would hold ARB if pt needs cardiac cath cardiac/diabetic diet Code(s): I11.9 - HYPERTENSIVE HEART DISEASE WITHOUT HEART FAILURE; I43 - CARDIOMYOPATHY IN DISEASES CLASSIFIED ELSEWHERE Qualifiers: Heart failure presence: without heart failure Qualified Code(s): I11.9 - Hypertensive heart disease without heart failure (7) Rheumatoid arthritis Assessment/Plan: continue plaquenil 200mg daily Code(s): M06.9 - RHEUMATOID ARTHRITIS, UNSPECIFIED Qualifiers: Rheumatoid arthritis location: unspecified site
[2018-01-28] MEDS ORDERED: PT OWN MED DRAWER 7, Y5N ONE (09:34)
[2018-01-28] MEDS: MEMANTINE HCL 5 MG TABLET (UD) PO SCH (09:42)
[2018-01-28] MEDS: amLODIPine BESYLATE 5 MG TABLET (FP) PO SCH (09:42)
[2018-01-28] MEDS: DOXAZOSIN MESYLATE 4 MG TABLET PO SCH ×2 (09:43→11:39)
[2018-01-28] MEDS: HEPARIN NA (PORCINE) 5,000 UNITS/ML 1ML VIAL SQ SCH (09:43)
[2018-01-28] MEDS: HYDROXYCHLOROQUINE SO4 200 MG TABLET (FP) PO SCH ×2 (09:43→11:39)
--- NOTE | 2018-01-28 11:58 | PN ---
Progress Note (short form) - Note Progress Note: PULMONARY CONSULTATION DICTATED 01/28/18 IMP SYNCOPE DYSPNEA ? CARDIAC +TROPONIN HYPOTHYROID DM CARDIOMYOPATHY RA PLAN O2 NEEDED TREND TROPONIN ECHO CARDIOLOGY W/U DR SHARMA Problem List - Problems (1) Alzheimer's dementia without behavioral disturbance Code(s): G30.9 - ALZHEIMER'S DISEASE, UNSPECIFIED; F02.80 - DEMENTIA IN OTH DISEASES CLASSD ELSWHR W/O BEHAVRL DISTURB (2) Elevated troponin Code(s): R74.8 - ABNORMAL LEVELS OF OTHER SERUM ENZYMES (3) Fall at home Code(s): W19.XXXA - UNSPECIFIED FALL, INITIAL ENCOUNTER; Y92.009 - UNSP PLACE IN UNSP NON-INSTITUT (PRIVATE) RESIDENCE PLACE (4) Shortness of breath Code(s): R06.02 - SHORTNESS OF BREATH (5) Cardiac enzymes elevated Code(s): R74.8 - ABNORMAL LEVELS OF OTHER SERUM ENZYMES (6) Hypertensive cardiomyopathy Code(s): I11.9 - HYPERTENSIVE HEART DISEASE WITHOUT HEART FAILURE; I43 - CARDIOMYOPATHY IN DISEASES CLASSIFIED ELSEWHERE Qualifiers: Heart failure presence: without heart failure Qualified Code(s): I11.9 - Hypertensive heart disease without heart failure (7) Hypothyroidism Code(s): E03.9 - HYPOTHYROIDISM, UNSPECIFIED Qualifiers: Hypothyroidism type: unspecified Qualified Code(s): E03.9 - Hypothyroidism , unspecified (8) Type 2 diabetes mellitus Code(s): E11.9 - TYPE 2 DIABETES MELLITUS WITHOUT COMPLICATIONS Qualifiers: Diabetes mellitus local intermodal 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
--- NOTE | 2018-01-28 12:29 | CONS ---
DATE OF CONSULTATION: 01/28/2018 REFERRING PHYSICIAN: Wallace Jung MD HISTORY OF PRESENT ILLNESS: History is obtained from medical records. The patient is a poor historian secondary to dementia. The patient is an 87-year-old white female with a past medical history of dementia, hypertension, CHF, hypothyroidism,PAF Alzheimer, admitted to [facility] on January 27 with complaints of shortness of breath that started at 11:00 on the morning of admission. As per patient's son apparently the patient sustained a mechanical fall the night prior to admission while getting undressed. She suffered loss of consciousness and found approximately 30 minutes later by her . Apparently at that time she did not have any other complaints. Apparently she then started complaining of some shortness of breath on morning of admission. The family decided to take the patient to the ER. The patient underwent CTA of the chest which revealed no evidence of acute pathology and/or pulmonary embolism. PAST MEDICAL HISTORY: Past medical history again includes Alzheimer dementia, CHF, hypertension, cardiomyopathy, heart murmur, rheumatoid arthritis, diabetes and hypothyroidism. REVIEW OF SYSTEMS: Patient denies any shortness of breath at this time. Denies chest pain. No cough. MEDICATIONS: Include Cardura; Diovan; heparin; Plaquenil; Lopressor; Namenda; Norvasc; Lipitor; NovoLog and Synthroid. PHYSICAL EXAMINATION:General: The patient is an elderly white female, well developed, awake, alert, confused, in no acute distress.Vital Signs: She is afebrile, blood pressure 138/79, respiratory rate is 19, O2 saturation is 98% on room air. HEENT: Normocephalic, atraumatic. Neck: Supple. Heart: Regular with S1, S2. Chest: Clear. Abdomen: Soft. Bowel sounds positive. Extremities: No cyanosis or edema. LABORATORIES: WBC is 4.7, hemoglobin 10.6, hematocrit 30.1 with a platelet count of 428,000. Blood gas: PH is 7.47, PCO2 of 35, PO2 of 89.5, bicarbonate of 25 and saturation of 96. INR is 1.103. BUN 12, creatinine 0.6. Troponin 0.18. Chest CT: As noted earlier no infiltrates and no effusions; no pulmonary emboli. CT scan of the head: No acute pathology. Cervical CT: Mild degenerative arthritis, no acute pathology. IMPRESSION: 1. Status post syncope, etiology undetermined, r/o cardiac . 2. Dyspnea, possible cardiac although currently clinically without complaints of shortness of breath. 3. Alzheimer dementia. 4. Hypertension. 5. Diabetes. 6. Congestive heart failure. 7. Anemia. 8. PAF 9 + Troponin PLAN: Continue cardiology workup.Eliquis, Trend Troponin Supplemental O2 as needed. Monitor hemoglobin and hematocrit. Thank you. YOEL SHARMA M.D. [id number] MTDD
--- NOTE | 2018-01-28 12:48 | PN ---
Progress Note, Physician History of Present Illness: Patient sees Dr. Omer in office most recently 01/16/2018 87 year old F with h/o nonobstructive CAD, diastolic dysfunction, HTN heart disease, hypothyroidism , Type 2 DM and alzheimers dementia presents with ED with c/o SOB which started at 11am on the morning of 01/27. As per Son (alis), pt sustained a mechanical fall last night, found on floot with closed head trauma. However, when she reported SOB on the morning of 01/27, and presented to ED for evaluation received IVF. History is limited due to dementia, but she is no longer dyspneic. - Current Medication List Current Medications: Active Medications Amlodipine Besylate (Norvasc -) 5 mg PO DAILY [facility] Last Admin: 01/28/18 09:42 Dose: 5 mg Atorvastatin Calcium (Lipitor -) 40 mg PO HS [facility] Doxazosin Mesylate (Cardura -) 4 mg PO DAILY [facility] Last Admin: 01/28/18 11:39 Dose: 4 mg Heparin Sodium (Porcine) (Heparin -) 5,000 unit SQ BID [facility] Last Admin: 01/28/18 09:43 Dose: 5,000 unit Hydroxychloroquine Sulfate (Plaquenil -) 200 mg PO DAILY [facility] Last Admin: 01/28/18 11:39 Dose: 200 mg Insulin Aspart (Novolog Vial Sliding Scale -) 1 vial SQ ACHS [facility]; Protocol Last Admin: 01/28/18 11:41 Dose: Not Given Levothyroxine Sodium (Synthroid -) 25 mcg PO 0700 [facility] Last Admin: 01/28/18 06:54 Dose: 25 mcg Memantine (Namenda -) 5 mg PO DAILY [facility] Last Admin: 01/28/18 09:42 Dose: 5 mg Metoprolol Tartrate (Lopressor -) 50 mg PO BID [facility] Valsartan (Diovan -) 160 mg PO BID [facility] - Objective Vital Signs: Vital Signs Temperature 98.0 F 01/28/18 08:34 Pulse Rate 88 01/28/18 08:34 Respiratory Rate 19 01/28/18 09:00 Blood Pressure 138/79 01/28/18 08:34 O2 Sat by Pulse Oximetry (%) 98 01/28/18 09:00 Constitutional: Yes: No Distress, Calm Neck: Yes: Supple Cardiovascular: Yes: Regular Rate and Rhythm, Murmur (2/6 SM) Respiratory: Yes: Regular, Diminished, On Nasal O2 Gastrointestinal: Yes: Normal Bowel Sounds, Soft Edema: No Edema: LLE: 1+, RLE: 1+ Labs: CBC, BMP 01/28/18 05:30 01/28/18 05:30 INR, PTT INR 1.03 (0.83-1.09) 01/28/18 05:30 - ....Imaging Chest X-ray: Report Reviewed (NAD) Cat Scan: Report Reviewed (No PE, no acute intracranial pathology) EKG: Report Reviewed (Tele: suspect PAF with RVR) Problem List - Problems (1) Acute on chronic diastolic (congestive) heart failure Code(s): I50.33 - ACUTE ON CHRONIC DIASTOLIC (CONGESTIVE) HEART FAILURE (2) Shortness of breath Code(s): R06.02 - SHORTNESS OF BREATH (3) Demand ischemia Code(s): I24.8 - OTHER FORMS OF ACUTE ISCHEMIC HEART DISEASE (4) Hyperlipidemia associated with type 2 diabetes mellitus Code(s): E11.69 - TYPE 2 DIABETES MELLITUS WITH OTHER SPECIFIED COMPLICATION; E78.5 - HYPERLIPIDEMIA, UNSPECIFIED (5) Hypertensive cardiomyopathy Code(s): I11.9 - HYPERTENSIVE HEART DISEASE WITHOUT HEART FAILURE; I43 - CARDIOMYOPATHY IN DISEASES CLASSIFIED ELSEWHERE Qualifiers: Heart failure presence: without heart failure Qualified Code(s): I11.9 - Hypertensive heart disease without heart failure (6) Hypothyroidism Code(s): E03.9 - HYPOTHYROIDISM, UNSPECIFIED Qualifiers: Hypothyroidism type: unspecified Qualified Code(s): E03.9 - Hypothyroidism , unspecified (7) Rheumatoid arthritis Code(s): M06.9 - RHEUMATOID ARTHRITIS, UNSPECIFIED Qualifiers: Rheumatoid arthritis location: unspecified site (8) Type 2 diabetes mellitus Code(s): E11.9 - TYPE 2 DIABETES MELLITUS WITHOUT COMPLICATIONS Qualifiers: Diabetes mellitus keno terminal operator insulin use: without usp use Diabetes mellitus complication status: without complication Qualified Code(s): E11.9 - Type 2 diabetes mellitus without complications (9) Paroxysmal atrial fibrillation with rapid ventricular response Code(s): I48.0 - PAROXYSMAL ATRIAL FIBRILLATION Assessment/Plan 09/23/2016 Echo: Normal LV size and fxn, mild MR, TR RVSP 38 mmHg 08/31/2013 P-Myoview: No ischemia, LVEF 88% 09/05/2009 [facility]: No CAD, normal LVEF 60%, mild MR 1. Non-obstructive CAD with demand ischemia 2. Dyspnea referable to PAF with RVR 3. Diastolic dysfunction 3. Hypertensive cardiomyopathy 4. Post mechanical fall 5. Dementia of ALzhiemer's Type 6. Hypothyroidism 7. Rheumatoid Arthritis P:1. Trend trops to document peak, check holter to assess arrhythmia burden, replete K 2. Change ASA to Eliquis 2.5 bid 3. Continue Norvasc 5 qd, Diovan 160 bid, Lipitor 40 qhs, Cardura 4 qd and Lopressor 50 bid, consider switch to sotalol 4. Thank you for consultative opportunity
--- NOTE | 2018-01-28 14:30 | ECHO ---
Name: GABRIELA GARCÍA Exam:Adult Echocardiogram Study Date: 01/28/2018 10:45 AM Age: 87 yrs Reason For Study: LV Function Height: 52 in Weight: 115 lb BSA: 1.3 m2 MMode/2D Measurements & Calculations LVIDd: 2.7 cm Ao root diam: 2.6 cm LVIDs: 1.6 cm LA dimension: 3.3 cm EDV(Teich): 28.2 ml LVOT diam: 1.7 cm ESV(Teich): 7.3 ml TAPSE: 2.0 cm RV S Kilo: 11.2 cm/sec Doppler Measurements & Calculations MV V2 max: 133.0 cm/sec MV E max kilo: 147.0 cm/sec MV max P.1 mmHg MV A max kilo: 117.5 cm/sec MV V2 mean: 90.4 cm/sec MV E/A: 1.3 MV mean P.6 mmHg MV dec time: 0.24 sec MV V2 VTI: 36.3 cm Ao V2 max: 226.2 cm/sec LV V1 max P.2 mmHg Ao max P.5 mmHg LV V1 max: 174.4 cm/sec DESTINY(V,D): 1.7 cm2 TR max kilo: 272.2 cm/sec Med Peak E' Kilo: 5.3 cm/sec TR max P.5 mmHg Med E/e': 28.0 Procedure A two-dimensional transthoracic echocardiogram with color flow and Doppler was performed. The study w as technically difficult with many images being suboptimal in quality. Left Ventricle The left ventricular size, thickness and function are normal. The left ventricular ejection fraction is normal. The left ventricular wall motion is normal. Right Ventricle The right ventricle is not well visualized. Atria The left atrium is moderately dilated. The right atrium is moderately dilated. Mitral Valve There is mild mitral valve thickening. There is no mitral valve stenosis. There is mild mitral regurg itation. Tricuspid Valve There is mild tricuspid valve thickening. There is no tricuspid stenosis. There is mild tricuspid regurgitation. Right ventricular systolic pressure is normal. Aortic Valve The aortic valve is not well visualized. No hemodynamically significant valvular aortic stenosis. No aortic regurgitation is present. Pulmonic Valve The pulmonic valve is not well visualized. Great Vessels The aortic root is normal size. Pericardium/Pleura There is no pericardial effusion. Interpretation Summary The left ventricular size, thickness and function are normal The left ventricular ejection fraction is normal. The left ventricular wall motion is normal. There is mild mitral regurgitation. There is mild tricuspid regurgitation. Right ventricular systolic pressure is normal. The left atrium is moderately dilated. The right atrium is moderately dilated. The study was technically difficult with many images being suboptimal in quality. MD Mp Powell 01/28/2018 02:29 PM
[2018-01-28] MEDS: VALSARTAN 160 MG TABLET (UD) PO SCH ×2 (15:20→21:44)
--- NOTE | 2018-01-28 15:40 | EKG ---
Test Reason : Blood Pressure : / mmHG Vent. Rate : 101 BPM Atrial Rate : 101 BPM P-R Int : 126 ms QRS Dur : 126 ms QT Int : 406 ms P-R-T Axes : 055 049 049 degrees QTc Int : 526 ms SINUS TACHYCARDIA WITH PREMATURE ATRIAL COMPLEXES RIGHT BUNDLE BRANCH BLOCK ABNORMAL ECG WHEN COMPARED WITH ECG OF 27-JAN-2018 15:01, MINIMAL CRITERIA FOR INFERIOR INFARCT ARE NO LONGER PRESENT Confirmed by CHRISTIANE CALL, JIMMY ([id number]) on 01/28/2018 3:39:49 PM Referred By: LUIS NARVAEZ Confirmed By:JIMMY GRANDE MD
--- NOTE | 2018-01-28 15:41 | EKG ---
Test Reason : Blood Pressure : / mmHG Vent. Rate : 111 BPM Atrial Rate : 150 BPM P-R Int : 124 ms QRS Dur : 142 ms QT Int : 378 ms P-R-T Axes : 079 043 026 degrees QTc Int : 514 ms POOR DATA QUALITY, INTERPRETATION MAY BE ADVERSELY AFFECTED SINUS TACHYCARDIA WITH PREMATURE ATRIAL COMPLEXES RIGHT BUNDLE BRANCH BLOCK CANNOT RULE OUT INFERIOR INFARCT , AGE UNDETERMINED ABNORMAL ECG WHEN COMPARED WITH ECG OF 29-SEP-2017 15:18, PREMATURE ATRIAL COMPLEXES ARE NOW PRESENT VENT. RATE HAS INCREASED BY 43 BPM MINIMAL CRITERIA FOR INFERIOR INFARCT ARE NOW PRESENT Confirmed by JIMMY GRANDE MD ([id number]) on 01/28/2018 3:41:03 PM Referred By: Confirmed By:JIMMY GRANDE MD
[2018-01-28] MEDS: APIXABAN 2.5 MG TABLET PO SCH (21:44)
[2018-01-28] MEDS: ATORVASTATIN CA 40 MG TABLET (FP) PO SCH (21:44)
[2018-01-28] MEDS: METOPROLOL TARTRATE 50 MG TABLET (FP) PO SCH (21:44)
[2018-01-29] MEDS: INSULIN SLIDING SCALE (NOVOLOG) 1 VIAL SQ SCH ×4 (06:05→22:36)
[2018-01-29] MEDS: LEVOTHYROXINE NA 25 MCG TABLET (FP) PO SCH (06:32)
[2018-01-29 08:16] LABS: ALBUMIN 2.6 g/dl (3.4-5.0); ALK PHOS 182 U/L (45-117); ANION GAP 7 MMOL/L (8-16); BILIRUBIN,TOTAL 0.3 mg/dL (0.2-1); BLOOD UREA NITROGEN 17 mg/dL (7-18); CHLORIDE 102 mmol/L (98-107); CO2 28 mmol/L (21-32); CREATININE 0.6 mg/dL (0.55-1.3); GLUCOSE,RANDOM 98 mg/dL (74-106); POTASSIUM 4.3 mmol/L (3.5-5.1); SGOT/AST 24 U/L (15-37); SGPT/ALT 24 U/L (13-61); SODIUM 137 mmol/L (136-145); TOT PROT 5.6 g/dl (6.4-8.2)
[2018-01-29] MEDS ORDERED: PT OWN MED DRAWER 7, Y5N ONE (09:06)
--- NOTE | 2018-01-29 09:54 | PN ---
Progress Note, Physician History of Present Illness: pulmonary alert,no distress,-cp,-sob - Current Medication List Current Medications: Active Medications Amlodipine Besylate (Norvasc -) 5 mg PO DAILY [facility] Last Admin: 01/28/18 09:42 Dose: 5 mg Apixaban (Eliquis -) 2.5 mg PO BID [facility] Last Admin: 01/28/18 21:44 Dose: 2.5 mg Atorvastatin Calcium (Lipitor -) 40 mg PO HS [facility] Last Admin: 01/28/18 21:44 Dose: 40 mg Doxazosin Mesylate (Cardura -) 4 mg PO DAILY [facility] Last Admin: 01/28/18 11:39 Dose: 4 mg Hydroxychloroquine Sulfate (Plaquenil -) 200 mg PO DAILY [facility] Last Admin: 01/28/18 11:39 Dose: 200 mg Insulin Aspart (Novolog Vial Sliding Scale -) 1 vial SQ [facility]; Protocol Last Admin: 01/29/18 06:05 Dose: Not Given Levothyroxine Sodium (Synthroid -) 25 mcg PO 0700 [facility] Last Admin: 01/29/18 06:32 Dose: 25 mcg Memantine (Namenda -) 5 mg PO DAILY [facility] Last Admin: 01/28/18 09:42 Dose: 5 mg Metoprolol Tartrate (Lopressor -) 50 mg PO BID [facility] Last Admin: 01/28/18 21:44 Dose: 50 mg Valsartan (Diovan -) 160 mg PO BID [facility] Last Admin: 01/28/18 21:44 Dose: 160 mg - Objective Vital Signs: Vital Signs Temperature 98.3 F 01/29/18 05:23 Pulse Rate 77 01/29/18 05:23 Respiratory Rate 18 01/29/18 08:12 Blood Pressure 165/74 01/29/18 05:23 O2 Sat by Pulse Oximetry (%) 96 01/29/18 08:12 Constitutional: Yes: Well Nourished, Calm Eyes: Yes: WNL HENT: Yes: WNL Neck: Yes: WNL Cardiovascular: Yes: Regular Rate and Rhythm, S1, S2 Respiratory: Yes: Diminished Gastrointestinal: Yes: Normal Bowel Sounds, Soft Extremities: Yes: WNL Edema: Yes Labs: CBC, BMP 01/29/18 05:30 INR, PTT INR 1.03 (0.83-1.09) 01/28/18 05:30 Problem List - Problems (1) Alzheimer's dementia without behavioral disturbance Code(s): G30.9 - ALZHEIMER'S DISEASE, UNSPECIFIED; F02.80 - DEMENTIA IN OTH DISEASES CLASSD ELSWHR W/O BEHAVRL DISTURB (2) Elevated troponin Code(s): R74.8 - ABNORMAL LEVELS OF OTHER SERUM ENZYMES (3) Fall at home Code(s): W19.XXXA - UNSPECIFIED FALL, INITIAL ENCOUNTER; Y92.009 - UNSP PLACE IN [facility]ENCE [facility] (4) Shortness of breath Code(s): R06.02 - SHORTNESS OF BREATH (5) Cardiac enzymes elevated Code(s): R74.8 - ABNORMAL LEVELS OF OTHER SERUM ENZYMES (6) Hypertensive cardiomyopathy Code(s): I11.9 - HYPERTENSIVE HEART DISEASE WITHOUT HEART FAILURE; I43 - CARDIOMYOPATHY IN DISEASES CLASSIFIED ELSEWHERE Qualifiers: Heart failure presence: without heart failure Qualified Code(s): I11.9 - Hypertensive heart disease without heart failure (7) Hypothyroidism Code(s): E03.9 - HYPOTHYROIDISM, UNSPECIFIED Qualifiers: Hypothyroidism type: unspecified Qualified Code(s): E03.9 - Hypothyroidism , unspecified (8) Type 2 diabetes mellitus Code(s): E11.9 - TYPE 2 DIABETES MELLITUS WITHOUT COMPLICATIONS Qualifiers: Diabetes mellitus half-way insulin use: without half-way use Diabetes mellitus complication status: without complication Qualified Code(s): E11.9 - Type 2 diabetes mellitus without complications (9) Syncope Code(s): R55 - SYNCOPE AND COLLAPSE Assessment/Plan IMP SYNCOPE DYSPNEA iimproved +TROPONIN likely demand ischemia HYPOTHYROID DM CARDIOMYOPATHY RA PAF PLAN O2 NEEDED ELIQUIS TREND TROPONIN DR SHARMA Problem List - Problems (1) Alzheimer's dementia without behavioral disturbance Code(s): G30.9 - ALZHEIMER'S DISEASE, UNSPECIFIED; F02.80 - DEMENTIA IN OTH DISEASES CLASSD ELSWHR W/O BEHAVRL DISTURB (2) Elevated troponin Code(s): R74.8 - ABNORMAL LEVELS OF OTHER SERUM ENZYMES (3) Fall at home Code(s): W19.XXXA - UNSPECIFIED FALL, INITIAL ENCOUNTER; Y92.009 - UNSP PLACE [facility] (4) Shortness of breath Code(s): R06.02 - SHORTNESS OF BREATH (5) Cardiac enzymes elevated Code(s): R74.8 - ABNORMAL LEVELS OF OTHER SERUM ENZYMES (6) Hypertensive cardiomyopathy Code(s): I11.9 - HYPERTENSIVE HEART DISEASE WITHOUT HEART FAILURE; I43 - CARDIOMYOPATHY IN DISEASES CLASSIFIED ELSEWHERE Qualifiers: Heart failure presence: without heart failure Qualified Code(s): I11.9 - Hypertensive heart disease without heart failure (7) Hypothyroidism Code(s): E03.9 - HYPOTHYROIDISM, UNSPECIFIED Qualifiers: Hypothyroidism type: unspecified Qualified Code(s): E03.9 - Hypothyroidism , unspecified (8) Type 2 diabetes mellitus Code(s): E11.9 - TYPE 2 DIABETES MELLITUS WITHOUT COMPLICATIONS Qualifiers: Diabetes mellitus principal technical architect insulin use: without principal technical architect use Diabetes mellitus complication status: without complication Qualified Code(s): E11.9 - Type 2 diabetes mellitus without complications (9) Syncope Code(s): R55 - SYNCOPE AND COLLAPSE
[2018-01-29] MEDS: VALSARTAN 160 MG TABLET (UD) PO SCH ×2 (09:57→22:37)
[2018-01-29] MEDS: amLODIPine BESYLATE 5 MG TABLET (FP) PO SCH (09:57)
[2018-01-29] MEDS: MEMANTINE HCL 5 MG TABLET (UD) PO SCH (09:57)
[2018-01-29] MEDS: DOXAZOSIN MESYLATE 4 MG TABLET PO SCH (09:57)
[2018-01-29] MEDS: HYDROXYCHLOROQUINE SO4 200 MG TABLET (FP) PO SCH (09:57)
[2018-01-29] MEDS: METOPROLOL TARTRATE 50 MG TABLET (FP) PO SCH ×2 (09:57→22:37)
[2018-01-29] MEDS: APIXABAN 2.5 MG TABLET PO SCH ×2 (09:57→22:37)
--- NOTE | 2018-01-29 12:44 | PN ---
Progress Note, Physician - Current Medication List Current Medications: Active Medications Amlodipine Besylate (Norvasc -) 5 mg PO DAILY [facility] Last Admin: 01/29/18 09:57 Dose: 5 mg Apixaban (Eliquis -) 2.5 mg PO BID [facility] Last Admin: 01/29/18 09:57 Dose: 2.5 mg Atorvastatin Calcium (Lipitor -) 40 mg PO HS [facility] Last Admin: 01/28/18 21:44 Dose: 40 mg Doxazosin Mesylate (Cardura -) 4 mg PO DAILY [facility] Last Admin: 01/29/18 09:57 Dose: 4 mg Hydroxychloroquine Sulfate (Plaquenil -) 200 mg PO DAILY [facility] Last Admin: 01/29/18 09:57 Dose: 200 mg Insulin Aspart (Novolog Vial Sliding Scale -) 1 vial SQ [facility]; Protocol Last Admin: 01/29/18 12:39 Dose: Not Given Levothyroxine Sodium (Synthroid -) 25 mcg PO 0700 [facility] Last Admin: 01/29/18 06:32 Dose: 25 mcg Memantine (Namenda -) 5 mg PO DAILY [facility] Last Admin: 01/29/18 09:57 Dose: 5 mg Metoprolol Tartrate (Lopressor -) 50 mg PO BID [facility] Last Admin: 01/29/18 09:57 Dose: 50 mg Valsartan (Diovan -) 160 mg PO BID [facility] Last Admin: 01/29/18 09:57 Dose: 160 mg - Objective Vital Signs: Vital Signs Temperature 98.3 F 01/29/18 05:23 Pulse Rate 77 01/29/18 05:23 Respiratory Rate 18 01/29/18 08:12 Blood Pressure 165/74 01/29/18 05:23 O2 Sat by Pulse Oximetry (%) 96 01/29/18 08:12 Cardiovascular: Yes: S1, S2 Respiratory: Yes: Regular, CTA Bilaterally Gastrointestinal: Yes: Normal Bowel Sounds, Soft Labs: CBC, BMP 01/28/18 05:30 01/29/18 05:30 INR, PTT INR 1.03 (0.83-1.09) 01/28/18 05:30 Problem List - Problems (1) Fall at home Assessment/Plan: fall precautions tylenol PRN pain Code(s): W19.XXXA - UNSPECIFIED FALL, INITIAL ENCOUNTER; Y92.009 - UNSP PLACE IN [facility] (2) Alzheimer's dementia without behavioral disturbance Assessment/Plan: continue memantine frequent reorientation Code(s): G30.9 - ALZHEIMER'S DISEASE, UNSPECIFIED; F02.80 - DEMENTIA IN OTH DISEASES CLASSD ELSWHR W/O BEHAVRL DISTURB (3) Elevated troponin Assessment/Plan: cardiology consult for elevated troponin If chest pain occurs, would consider heparin drip start ASA 81mg start statin therapy pt on metoprolol 50mg BID, will continue Laboratory Tests 01/27/18 01/28/18 01/29/18 19:00 05:30 05:30 Troponin I 0.13 H 0.18 H 0.17 H Code(s): R74.8 - ABNORMAL LEVELS OF OTHER SERUM ENZYMES (4) Hypothyroidism Assessment/Plan: continue synthroid 25mcg qam f/u TSH and T4F in AM bowel regimen with senna and colace Code(s): E03.9 - HYPOTHYROIDISM, UNSPECIFIED Qualifiers: Hypothyroidism type: unspecified Qualified Code(s): E03.9 - Hypothyroidism , unspecified (5) Type 2 diabetes mellitus Assessment/Plan: -Low dose insulin SS -diabetic diet -f/u lipids panel and A1c Code(s): E11.9 - TYPE 2 DIABETES MELLITUS WITHOUT COMPLICATIONS Qualifiers: Diabetes mellitus termite treater insulin use: without long-term use Diabetes mellitus complication status: without complication Qualified Code(s): E11.9 - Type 2 diabetes mellitus without complications (6) Hypertensive cardiomyopathy Assessment/Plan: norvasc 5mg daily valsartan 160mg daily, would hold ARB if pt needs cardiac cath cardiac/diabetic diet Code(s): I11.9 - HYPERTENSIVE HEART DISEASE WITHOUT HEART FAILURE; I43 - CARDIOMYOPATHY IN DISEASES CLASSIFIED ELSEWHERE Qualifiers: Heart failure presence: without heart failure Qualified Code(s): I11.9 - Hypertensive heart disease without heart failure (7) Rheumatoid arthritis Assessment/Plan: continue plaquenil 200mg daily Code(s): M06.9 - RHEUMATOID ARTHRITIS, UNSPECIFIED Qualifiers: Rheumatoid arthritis location: unspecified site (8) Arrhythmia Assessment/Plan: holter cardio on board Code(s): I49.9 - CARDIAC ARRHYTHMIA, UNSPECIFIED
--- NOTE | 2018-01-29 13:18 | PN ---
Progress Note (short form) - Note Progress Note: Chief Complaint: Events noted, notes reviewed, denies any chest pain, paroxysmal atrial fibrillation currently in sinus rhythm History of Present Illness: Seen and examined on telemetry. 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 Echocardiography dated 09/23/2016 revealed normal LV size and function, mild MR , mild TR with RVSP 38 mmHg - Current Medication List Current Medications Amlodipine Besylate (Norvasc -) 5 mg PO DAILY [facility] Last Admin: 01/29/18 09:57 Dose: 5 mg Apixaban (Eliquis -) 2.5 mg PO BID [facility] Last Admin: 01/29/18 09:57 Dose: 2.5 mg Atorvastatin Calcium (Lipitor -) 40 mg PO HS [facility] Last Admin: 01/28/18 21:44 Dose: 40 mg Doxazosin Mesylate (Cardura -) 4 mg PO DAILY [facility] Last Admin: 01/29/18 09:57 Dose: 4 mg Hydroxychloroquine Sulfate (Plaquenil -) 200 mg PO DAILY [facility] Last Admin: 01/29/18 09:57 Dose: 200 mg Insulin Aspart (Novolog Vial Sliding Scale -) 1 vial SQ [facility]; Protocol Last Admin: 01/29/18 12:39 Dose: Not Given Levothyroxine Sodium (Synthroid -) 25 mcg PO 0700 [facility] Last Admin: 01/29/18 06:32 Dose: 25 mcg Memantine (Namenda -) 5 mg PO DAILY [facility] Last Admin: 01/29/18 09:57 Dose: 5 mg Metoprolol Tartrate (Lopressor -) 50 mg PO BID [facility] Last Admin: 01/29/18 09:57 Dose: 50 mg Valsartan (Diovan -) 160 mg PO BID [facility] Last Admin: 01/29/18 09:57 Dose: 160 mg Review of Systems - Review of Systems Constitutional: denies: Chills or Fever Cardiovascular: as noted above Gastrointestinal: denies: Nausea, Vomiting, Diarrhea, Constipation or Abdominal Pain Genitourinary: No symptoms reported Neurological: No symptoms reported Vital Signs: Last Vital Signs Temp Pulse Resp BP Pulse Ox 97.8 F 89 20 159/78 96 01/29/18 10:00 01/29/18 10:00 01/29/18 10:00 01/29/18 10:00 01/29/18 08:12 Intake & Output 01/26/18 01/27/18 01/28/18 01/29/18 23:59 23:59 23:59 23:59 Intake Total 70 120 Balance 70 120 Weight 115 lb 115 lb Constitutional: No Distress, Calm Neck: Supple Negative JVD Respiratory: Clear to A&P Bilaterally Cardiovascular: S1 S2 Regular Rate Rhythm Gastrointestinal: Soft Benign Normal Bowel Sounds Ext: No Edema Labs: CBC, BMP 01/28/18 05:30 01/29/18 05:30 Hepatic Panel Total Bilirubin 0.3 mg/dL (0.2-1) 01/29/18 05:30 AST 24 U/L (15-37) 01/29/18 05:30 ALT 24 U/L (13-61) 01/29/18 05:30 Alkaline Phosphatase 182 U/L (45-117) H 01/29/18 05:30 Albumin 2.6 g/dl (3.4-5.0) L 01/29/18 05:30 Assessment/Plan ASSESSMENT: 1. 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 Diastolic dysfunction with clinical class 0-I NYHA classification LV failure/ hypertensive cardiomyopathy, clinically compensated/euvolemic 3. Paroxysmal atrial fibrillation currently in sinus rhythm [id number] score of 4. Post mechanical fall 5. HTN 6. Organic barin syndrome/Dementia 7. Hypothyroidism 8. Rheumatoid Arthritis 9. Anemia PLAN: 1. Continue Eliquis with caution 2. Continue Norvasc 3. Continue Diovan 4. Continue Lopressor, consider switch to Sotalol if recurrent arrhythmia 5. Continue Cardura 6. Continue Lipitor Vandana Omer M.D.
[2018-01-29] MEDS: ATORVASTATIN CA 40 MG TABLET (FP) PO SCH (22:37)
[2018-01-30] MEDS: INSULIN SLIDING SCALE (NOVOLOG) 1 VIAL SQ SCH ×2 (06:52→12:54)
[2018-01-30] MEDS: LEVOTHYROXINE NA 25 MCG TABLET (FP) PO SCH (06:52)
[2018-01-30] MEDS: APIXABAN 2.5 MG TABLET PO SCH (09:41)
[2018-01-30] MEDS: VALSARTAN 160 MG TABLET (UD) PO SCH (09:41)
[2018-01-30] MEDS: MEMANTINE HCL 5 MG TABLET (UD) PO SCH (09:41)
[2018-01-30] MEDS: METOPROLOL TARTRATE 50 MG TABLET (FP) PO SCH (09:42)
[2018-01-30] MEDS: amLODIPine BESYLATE 5 MG TABLET (FP) PO SCH (09:42)
[2018-01-30] MEDS: DOXAZOSIN MESYLATE 4 MG TABLET PO SCH (09:43)
[2018-01-30] MEDS: HYDROXYCHLOROQUINE SO4 200 MG TABLET (FP) PO SCH (09:43)
--- NOTE | 2018-01-30 10:58 | PN ---
Progress Note, Physician History of Present Illness: PULMONARY ALERT,NO DISTRESS,-CP,-SOB - Current Medication List Current Medications: Active Medications Amlodipine Besylate (Norvasc -) 5 mg PO DAILY [facility] Last Admin: 01/30/18 09:42 Dose: 5 mg Apixaban (Eliquis -) 2.5 mg PO BID [facility] Last Admin: 01/30/18 09:41 Dose: 2.5 mg Atorvastatin Calcium (Lipitor -) 40 mg PO HS [facility] Last Admin: 01/29/18 22:37 Dose: 40 mg Doxazosin Mesylate (Cardura -) 4 mg PO DAILY [facility] Last Admin: 01/30/18 09:43 Dose: 4 mg Hydroxychloroquine Sulfate (Plaquenil -) 200 mg PO DAILY [facility] Last Admin: 01/30/18 09:43 Dose: 200 mg Insulin Aspart (Novolog Vial Sliding Scale -) 1 vial SQ [facility]; Protocol Last Admin: 01/30/18 06:52 Dose: Not Given Levothyroxine Sodium (Synthroid -) 25 mcg PO 0700 [facility] Last Admin: 01/30/18 06:52 Dose: 25 mcg Memantine (Namenda -) 5 mg PO DAILY [facility] Last Admin: 01/30/18 09:41 Dose: 5 mg Metoprolol Tartrate (Lopressor -) 50 mg PO BID [facility] Last Admin: 01/30/18 09:42 Dose: 50 mg Valsartan (Diovan -) 160 mg PO BID [facility] Last Admin: 01/30/18 09:41 Dose: 160 mg - Objective Vital Signs: Vital Signs Temperature 98.5 F 01/30/18 06:00 Pulse Rate 77 01/30/18 06:00 Respiratory Rate 20 01/30/18 06:00 Blood Pressure 125/97 01/30/18 06:00 O2 Sat by Pulse Oximetry (%) 96 01/29/18 21:00 Constitutional: Yes: Well Nourished, Calm Eyes: Yes: WNL HENT: Yes: WNL Neck: Yes: WNL Cardiovascular: Yes: Regular Rate and Rhythm, S1, S2 Respiratory: Yes: Diminished Gastrointestinal: Yes: Normal Bowel Sounds, Soft Extremities: Yes: WNL Edema: No Labs: CBC, BMP Problem List - Problems (1) Alzheimer's dementia without behavioral disturbance Code(s): G30.9 - ALZHEIMER'S DISEASE, UNSPECIFIED; F02.80 - DEMENTIA IN OTH DISEASES CLASSD ELSWHR W/O BEHAVRL DISTURB (2) Elevated troponin Code(s): R74.8 - ABNORMAL LEVELS OF OTHER SERUM ENZYMES (3) Fall at home Code(s): W19.XXXA - UNSPECIFIED FALL, INITIAL ENCOUNTER; Y92.009 - UNSP PLACE IN [facility] (4) Shortness of breath Code(s): R06.02 - SHORTNESS OF BREATH (5) Cardiac enzymes elevated Code(s): R74.8 - ABNORMAL LEVELS OF OTHER SERUM ENZYMES (6) Hypertensive cardiomyopathy Code(s): I11.9 - HYPERTENSIVE HEART DISEASE WITHOUT HEART FAILURE; I43 - CARDIOMYOPATHY IN DISEASES CLASSIFIED ELSEWHERE Qualifiers: Heart failure presence: without heart failure Qualified Code(s): I11.9 - Hypertensive heart disease without heart failure (7) Hypothyroidism Code(s): E03.9 - HYPOTHYROIDISM, UNSPECIFIED Qualifiers: Hypothyroidism type: unspecified Qualified Code(s): E03.9 - Hypothyroidism , unspecified (8) Type 2 diabetes mellitus Code(s): E11.9 - TYPE 2 DIABETES MELLITUS WITHOUT COMPLICATIONS Qualifiers: Diabetes mellitus assisted insulin use: without assisted use Diabetes mellitus complication status: without complication Qualified Code(s): E11.9 - Type 2 diabetes mellitus without complications (9) Syncope Code(s): R55 - SYNCOPE AND COLLAPSE Assessment/Plan IMP SYNCOPE DYSPNEA iimproved +TROPONIN likely demand ischemia HYPOTHYROID DM CARDIOMYOPATHY RA PAF PLAN O2 NEEDED ELIQUIS TREND TROPONIN DR SHARAM Problem List - Problems (1) Alzheimer's dementia without behavioral disturbance Code(s): G30.9 - ALZHEIMER'S DISEASE, UNSPECIFIED; F02.80 - DEMENTIA IN OTH DISEASES CLASSD ELSWHR W/O BEHAVRL DISTURB (2) Elevated troponin Code(s): R74.8 - ABNORMAL LEVELS OF OTHER SERUM ENZYMES (3) Fall at home Code(s): W19.XXXA - UNSPECIFIED FALL, INITIAL ENCOUNTER; Y92.009 - UNSP PLACE IN [facility]IVATE[facility]ENCE [facility] (4) Shortness of breath Code(s): R06.02 - SHORTNESS OF BREATH (5) Cardiac enzymes elevated Code(s): R74.8 - ABNORMAL LEVELS OF OTHER SERUM ENZYMES (6) Hypertensive cardiomyopathy Code(s): I11.9 - HYPERTENSIVE HEART DISEASE WITHOUT HEART FAILURE; I43 - CARDIOMYOPATHY IN DISEASES CLASSIFIED ELSEWHERE Qualifiers: Heart failure presence: without heart failure Qualified Code(s): I11.9 - Hypertensive heart disease without heart failure (7) Hypothyroidism Code(s): E03.9 - HYPOTHYROIDISM, UNSPECIFIED Qualifiers: Hypothyroidism type: unspecified Qualified Code(s): E03.9 - Hypothyroidism , unspecified (8) Type 2 diabetes mellitus Code(s): E11.9 - TYPE 2 DIABETES MELLITUS WITHOUT COMPLICATIONS Qualifiers: Diabetes mellitus assisted insulin use: without furnace reliner use Diabetes mellitus complication status: without complication Qualified Code(s): E11.9 - Type 2 diabetes mellitus without complications (9) Syncope Code(s): R55 - SYNCOPE AND COLLAPSE
--- NOTE | 2018-01-30 12:15 | PN ---
Progress Note (short form) - Note Progress Note: Chief Complaint: Events noted, notes reviewed, denies any chest pain, paroxysmal atrial fibrillation/atrial flutter noted currently in sinus rhythm History of Present Illness: Seen and examined on telemetry. 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 Echocardiography dated 09/23/2016 revealed normal LV size and function, mild MR , mild TR with RVSP 38 mmHg - Current Medication List Current Medications Amlodipine Besylate (Norvasc -) 5 mg PO DAILY [facility] Last Admin: 01/30/18 09:42 Dose: 5 mg Apixaban (Eliquis -) 2.5 mg PO BID [facility] Last Admin: 01/30/18 09:41 Dose: 2.5 mg Atorvastatin Calcium (Lipitor -) 40 mg PO HS [facility] Last Admin: 01/29/18 22:37 Dose: 40 mg Doxazosin Mesylate (Cardura -) 4 mg PO DAILY [facility] Last Admin: 01/30/18 09:43 Dose: 4 mg Hydroxychloroquine Sulfate (Plaquenil -) 200 mg PO DAILY [facility] Last Admin: 01/30/18 09:43 Dose: 200 mg Insulin Aspart (Novolog Vial Sliding Scale -) 1 vial SQ [facility]; Protocol Last Admin: 01/30/18 06:52 Dose: Not Given Levothyroxine Sodium (Synthroid -) 25 mcg PO 0700 [facility] Last Admin: 01/30/18 06:52 Dose: 25 mcg Memantine (Namenda -) 5 mg PO DAILY [facility] Last Admin: 01/30/18 09:41 Dose: 5 mg Metoprolol Tartrate (Lopressor -) 50 mg PO BID [facility] Last Admin: 01/30/18 09:42 Dose: 50 mg Valsartan (Diovan -) 160 mg PO BID [facility] Last Admin: 01/30/18 09:41 Dose: 160 mg Review of Systems - Review of Systems Constitutional: denies: Chills or Fever Cardiovascular: as noted above Gastrointestinal: denies: Nausea, Vomiting, Diarrhea, Constipation or Abdominal Pain Genitourinary: No symptoms reported Neurological: No symptoms reported Vital Signs: Last Vital Signs Temp Pulse Resp BP Pulse Ox 98.5 F 77 20 125/97 96 01/30/18 06:00 01/30/18 06:00 01/30/18 06:00 01/30/18 06:00 01/29/18 21:00 Intake & Output 01/27/18 01/28/18 01/29/18 01/30/18 23:59 23:59 23:59 23:59 Intake Total 70 180 10 Balance 70 180 10 Weight 115 lb 115 lb Constitutional: No Distress, Calm Neck: Supple Negative JVD Respiratory: Clear to A&P Bilaterally Cardiovascular: S1 S2 Regular Rate Rhythm Gastrointestinal: Soft Benign Normal Bowel Sounds Ext: No Edema Labs: CBC, BMP 01/28/18 05:30 01/29/18 05:30 Assessment/Plan ASSESSMENT: 1. 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 Diastolic dysfunction with clinical class 0-I NYHA classification LV failure/ hypertensive cardiomyopathy, clinically compensated/euvolemic 3. Paroxysmal atrial fibrillation/atrial flutter currently in sinus rhythm [id number] score of 6 on DOAC's/Eliquis 4. Post mechanical fall 5. HTN 6. Organic barin syndrome/Dementia 7. Hypothyroidism 8. Rheumatoid Arthritis 9. Anemia PLAN: 1. Continue Eliquis with caution 2. Continue Norvasc 3. Continue Diovan 4. Continue Lopressor, recommend the addition of Amiodarone if arrhythmia recurs and persists, my initail thought was Betapce, above can be done as outpatient if needed 5. Continue Cardura 6. Continue Lipitor 7. Provided patient remains clinically stable can be D/C home from the cardiovascular point of view, later today Vandana Omer M.D.
--- NOTE | 2018-01-30 13:43 | DS ---
Physical Examination Vital Signs: Vital Signs Temperature 98.4 F 01/30/18 10:00 Pulse Rate 75 01/30/18 10:00 Respiratory Rate 20 01/30/18 10:00 Blood Pressure 168/70 01/30/18 10:00 O2 Sat by Pulse Oximetry (%) 96 01/30/18 09:00 Cardiovascular: Yes: S1, S2 Respiratory: Yes: Regular, CTA Bilaterally Gastrointestinal: Yes: Normal Bowel Sounds, Soft Labs: CBC, BMP 01/28/18 05:30 01/29/18 05:30 Discharge Summary Reason For Visit: SOB/ CLOSED HEAD INJ/ELEV TROP Current Active Problems Acute on chronic diastolic (congestive) heart failure (Acute) Alzheimer's dementia without behavioral disturbance (Acute) Arrhythmia (Acute) Closed head injury (Acute) Elevated troponin (Acute) Fall at home (Acute) Paroxysmal atrial fibrillation with rapid ventricular response (Acute) Shortness of breath (Acute) Syncope (Acute) Hospital Course: - Problems (1) Fall at home Assessment/Plan: fall precautions tylenol PRN pain Code(s): W19.XXXA - UNSPECIFIED FALL, INITIAL ENCOUNTER; Y92.009 - UNSP PLACE IN UNSP [facility]PRIVATE[facility] RES[facility]ENCE PL[facility] (2) Alzheimer's dementia without behavioral disturbance Assessment/Plan: continue memantine frequent reorientation Code(s): G30.9 - ALZHEIMER'S DISEASE, UNSPECIFIED; F02.80 - DEMENTIA IN OTH DISEASES CLASSD ELSWHR W/O BEHAVRL DISTURB (3) Elevated troponin Assessment/Plan: cardiology consult for elevated troponin If chest pain occurs, would consider heparin drip start ASA 81mg start statin therapy pt on metoprolol 50mg BID, will continue Laboratory Tests 01/27/18 01/28/18 01/29/18 19:00 05:30 05:30 Troponin I 0.13 H 0.18 H 0.17 H Code(s): R74.8 - ABNORMAL LEVELS OF OTHER SERUM ENZYMES (4) Hypothyroidism Assessment/Plan: continue synthroid 25mcg qam f/u TSH and T4F in AM bowel regimen with senna and colace Code(s): E03.9 - HYPOTHYROIDISM, UNSPECIFIED Qualifiers: Hypothyroidism type: unspecified Qualified Code(s): E03.9 - Hypothyroidism , unspecified (5) Type 2 diabetes mellitus Assessment/Plan: -Low dose insulin SS -diabetic diet -f/u lipids panel and A1c Code(s): E11.9 - TYPE 2 DIABETES MELLITUS WITHOUT COMPLICATIONS Qualifiers: Diabetes mellitus local intermodal truck driver insulin use: without local intermodal truck driver use Diabetes mellitus complication status: without complication Qualified Code(s): E11.9 - Type 2 diabetes mellitus without complications (6) Hypertensive cardiomyopathy Assessment/Plan: norvasc 5mg daily valsartan 160mg daily, would hold ARB if pt needs cardiac cath cardiac/diabetic diet Code(s): I11.9 - HYPERTENSIVE HEART DISEASE WITHOUT HEART FAILURE; I43 - CARDIOMYOPATHY IN DISEASES CLASSIFIED ELSEWHERE Qualifiers: Heart failure presence: without heart failure Qualified Code(s): I11.9 - Hypertensive heart disease without heart failure (7) Rheumatoid arthritis Assessment/Plan: continue plaquenil 200mg daily Code(s): M06.9 - RHEUMATOID ARTHRITIS, UNSPECIFIED Qualifiers: Rheumatoid arthritis location: unspecified site (8) Arrhythmia Assessment/Plan: holter to be followed up by cardio cardio on board--cleared for dc Code(s): I49.9 - CARDIAC ARRHYTHMIA, UNSPECIFIED Condition: Stable - Instructions Referrals: Tono Hampton MD [Primary Care Provider] - 2 Weeks Disposition: [facility]/HOME HEALTH CARE - Home Medications Comprehensive Discharge Medication List: Ambulatory Orders Amlodipine Besylate 5 mg PO DAILY 01/27/18 Doxazosin Mesylate 4 mg PO DAILY 01/27/18 Hydroxychloroquine So4 [Plaquenil -] 200 mg PO DAILY 01/27/18 Levothyroxine [Synthroid -] 25 mcg PO DAILY 01/27/18 Memantine HCl 5 mg PO DAILY 01/27/18 Metoprolol Tartrate 50 mg PO BID 01/27/18 Valsartan [Diovan] 160 mg PO BID 01/27/18 Apixaban [Eliquis -] 2.5 mg PO BID #60 tablet 01/30/18 Atorvastatin Ca [Lipitor] 40 mg PO HS #30 tablet 01/30/18
[2018-01-30 14:47] VITALS: BP 138/63; PULSE 76; TEMP 99.5
--- NOTE | 2018-02-16 12:11 | HOL ---
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 77833 Supraventricular ectopics which represent 8 % of total QRS comp. * Paced QRS complexs which represent % of total QRS comp. 253 % of Time Classified as Noise VENTRICULAR ECTOPY 1 Isolated 0 Bigeminal Cycles 0 Couplets 2 Runs 6 Beats in Runs 3 Beats LONGEST at 104 BPM at 19:47:29 2018-01-28 3 Beats FASTEST at 141 BPM at 08:43:40 2018-01-29 SUPRAVENTRICULAR ECTOPY 9283 Isolated 429 Couplets 150 Runs 616 Beats in Runs 9 Beats LONGEST at 151 BPM at 14:45:20 2018-01-28 3 Beats FASTEST at 220 BPM at 17:18:46 2018-01-28 HEART RATES 62 MIN at 06:50:34 2018-01-29 89 AVG 149 MAX at 15:25:55 2018-01-28 LONGEST RR 1.184 secs at 06:56:06 2018-01-29 SCANNED BY: NAYANA 01/31 NSR Frequent APC;s brief runs of paroxysmal atrial tach.(longest is 9beats) Rare PVC"S,3 beats run of non-sustained VT. No long pause or profound bradycardia No symptoms recorded. Confirmed by JAYJAY CALL, JENNIFER ([id number]), mapping editor SHAKIR MORALES ([id number]) on 02/16/2018 12:10:52 PM Referred By: Paresh CHANDLER Overread By: JENNIFER RO MD
== END 2018-01-30 15:36 | disposition home health service (06) | DRG 292 ==
LOC: JER 13:17 → JERBED 20:08 → J4W 01-28 02:48
PROVIDERS: ADMIT Family Medicine; ATTEND Family Medicine
DX: I11.0 Hypertensive heart disease with heart failure (principal); I24.8 Other forms of acute ischemic heart disease; I48.92 Unspecified atrial flutter; I43 Cardiomyopathy in diseases classified elsewhere; I50.30 Unspecified diastolic (congestive) heart failure; I25.110 Atherosclerotic heart disease of native coronary artery with unstable angina pectoris; G30.9 Alzheimer's disease, unspecified; F02.80 Dementia in other diseases classified elsewhere, unspecified severity, without behavioral disturbance, psychotic disturbance, mood disturbance, and anxiety; E11.9 Type 2 diabetes mellitus without complications; E05.90 Thyrotoxicosis, unspecified without thyrotoxic crisis or storm; E78.5 Hyperlipidemia, unspecified; N95.9 Unspecified menopausal and perimenopausal disorder; E03.9 Hypothyroidism, unspecified; M06.9 Rheumatoid arthritis, unspecified; J30.9 Allergic rhinitis, unspecified; R74.8 Abnormal levels of other serum enzymes; W18.30XA Fall on same level, unspecified, initial encounter; I45.10 Unspecified right bundle-branch block; R55 Syncope and collapse; I49.9 Cardiac arrhythmia, unspecified; D64.9 Anemia, unspecified; I48.0 Paroxysmal atrial fibrillation; Z78.0 Asymptomatic menopausal state; Y92.009 Unspecified place in unspecified non-institutional (private) residence as the place of occurrence of the external cause
CPT/HCPCS: 36415; 36600; 70450-TC; 71045-TC-FY; 71275-TC; 72125-TC; 80048; 80053; 81003; 81015; 82550; 82803; 82962; 83605; 83735; 83880; 84100; 84484; 85025; 85027; 85610; 85730; 87086; 93005; 93010; 93225; 93226; 93306-TC; 93971-TC; 97116-GP; 97161-GP; 99284-25; J1644; J7030